=== PATIENT | male | born 1955 | race Caucasian/White ===

== ENCOUNTER 2018-05-03 18:48 | Inpatient (IN) | payer OTHER ==
[~2018-05-03] VITALS: Ht 165.1 cm; Wt 62.8 kg
[~2018-05-03 18:48] MED LIST: ALBU1AER9 INH; CITA40TA12 PO; DONE1TAB26 PO; METO-551 PO; MOME100A INH; SYNTHROID PO
[2018-05-03] MEDS ORDERED: DSY100 PO (19:28)
[2018-05-03] MEDS ORDERED: VNTHFA/IN INH (19:28)
[2018-05-03] MEDS ORDERED: DONE10TA12 PO (19:28)
[2018-05-03] MEDS ORDERED: BENZ100C7 PO (19:28)
[2018-05-03] MEDS ORDERED: LPR25 PO (19:28)
[2018-05-03 20:15] LABS: PTT PATIENT 26.6 SECONDS (21.0-31.0)
[2018-05-03 20:27] LABS: ALBUMIN 3.3 gm/dl (3.4-5.0); CREATININE 0.75 mg/dl (0.60-1.40); POTASSIUM 4.1 mmol/L (3.5-5.1); TOTAL PROTEIN 6.9 gm/dl (6.4-8.2)
--- NOTE | 2018-05-03 20:52 | DIAGNOSTIC IMAGING REPORT ---
CHEST 2 VIEWS ROUTINE CLINICAL HISTORY: Lung cancer with increasing shortness of breath. COMPARISON STUDY: Chest radiograph April 06, 2015. FINDINGS: Left hemithorax volume loss is noted. A 8.7 cm left midlung mass-like opacity is noted with suspected left upper lobe volume loss. There is possible left upper lobe collapse. Right lung is clear. There is no evidence for pulmonary edema cardiac size is normal. Rightward displacement of trachea may be due to lymphadenopathy or mass. IMPRESSION: 1. 8.7 cm mass-like left midlung opacity with possible associated left upper lobe collapse. The findings would be consistent with the provided history of lung cancer. 2. Rightward displacement of the distal trachea which may be due to lymphadenopathy or mass. 3. No evidence for pulmonary edema. 4. Hazy left mid and upper lung airspace opacity which favors atelectasis/upper lobe collapse. Pneumonia could appear similar. Electronically signed by: González Cartagena M.D. 05/03/2018 8:51 PM Dictated Date/Time: 05/03/2018 8:47 PM
[2018-05-03 20:54] LABS: HEMATOCRIT 36.5 % (42-52); MEAN CELL VOLUME 81.1 fL (80-100); MEAN CORPUSCULAR HEMOGLOBIN 31.1 pg (25-34); MEAN CORPUSCULAR HGB CONC 38.4 g/dl (32-36); PLATELET COUNT 175 K/uL (130-400); WHITE BLOOD COUNT 7.87 K/uL (4.8-10.8)
[2018-05-03 20:58] LABS: BASO % 0.1 %; BASO ABS # 0.01 K/uL (0-0.2); EOS % 1.5 %; EOS ABS # 0.12 K/uL (0-0.5); IG# 0.05 K/uL (0.00-0.02); LYMPH % 14.9 %; LYMPH ABS # 1.17 K/uL (1.2-3.4); MONO ABS # 0.63 K/uL (0.11-0.59); NEUT % 74.9 %; NEUT ABS # 5.89 K/uL (1.4-6.5)
[2018-05-03] MEDS ORDERED: HYDROCODONE/ACETAMIN 5/325MG TAB ONE (21:21)
[2018-05-03] MEDS ORDERED: NURSING VERBAL MED ORDER ONE (21:30)
[2018-05-03] MEDS ORDERED: HYDROCODONE/ACETAMIN 5/325MG TAB PO STA (21:48)
[2018-05-03] MEDS ORDERED: PIPERACILL/TAZOBAC CONSULT ACTIVE PRN (22:15)
[2018-05-03] MEDS ORDERED: LEVALBUTEROL/IPRATROPIUM NEB INH PRN (22:15)
[2018-05-03] MEDS ORDERED: NITROGLYCERIN 0.4 MG SL PER TAB CHARGE SL PRN (22:15)
[2018-05-03] MEDS ORDERED: POLYETHYLENE (MIRALAX) 17 GM PACK PO PRN (22:15)
[2018-05-03] MEDS ORDERED: ALUMINUM/MAGNESIUM/SIMETH (MAALOX MAX) 30 ML UDC PO PRN (22:15)
[2018-05-03] MEDS ORDERED: LEVALBUTEROL/IPRATROPIUM NEB INH SCH (22:15)
[2018-05-03] MEDS ORDERED: PIPERACILL/TAZOBAC IV 4.5 GM in DEXTROSE 5% 100ML 100 ML IV SCH (22:15)
[2018-05-03] MEDS ORDERED: ALBUTEROL HFA 8 GM INHALER INH PRN (22:15)
[2018-05-03] MEDS ORDERED: ATOR-54 PO (22:27)
[2018-05-03] MEDS ORDERED: PANT1TAB3 PO (22:27)
[2018-05-03] MEDS ORDERED: NMN10 PO (22:27)
[2018-05-03] MEDS ORDERED: DLN100 PO ×2 (22:28)
[2018-05-04] VITALS (12 sets, daily range): BP systolic 145–163; BP diastolic 88–95; PULSE 92–113; TEMP 36.5–36.8; O2SAT 94–98; Ht 165.1 cm; Wt 62.8 kg
--- NOTE | 2018-05-04 00:04 | EMERGENCY ROOM VISIT NOTE ---
History Report prepared by [place]: Norman Fonseca Under the Supervision of: Dr. Luis M Mckeon M.D. First contact with patient: 19:24 Chief Complaint: REFERRED BY DOCTOR Stated Complaint: REFERRED BY DR FOR RECENT LUNG CANCER DIAGNOSES History of Present Illness The patient is a 62 year old male who presents to the Emergency Room with complaints of worsening cough, left sided chest pain, and shortness of breath. He states that the chest pain is sharp and worsened with coughing, beginning about a month ago. The patient last coughed up blood a couple days ago. The patient reports that he had a CT scan 3 days ago that showed lung cancer with metastases. He denies any clots in his lungs. He reports that he was recommended by the on-call doctor to report to the ER. He states that he just found out a couple hours ago and that they do not yet have a plan for the cancer treatment. He also reports pain in the abdomen and groin but denies leg swelling or pain. He also notes that he experiences night sweats. He denies exposure to TB or any risk factors for TB including institutionalization. He reports that he used to be a heavy smoker, but has not smoked in 20 years. Source of History: patient Onset: about a month ago (chest pain) Position: chest Quality: other (coughing with blood, shortness of breath) Timing: worsening Associated Symptoms: + diaphoresis, + abdominal pain Review of Systems See HPI for pertinent positives & negatives. A total of 10 systems reviewed and were otherwise negative. Past Medical & Surgical Medical Problems: (1) Diabetes (2) Emphysema, unspecified (3) Heart disease (4) Lung mass (5) SOB (shortness of breath) Family History Cancer Heart disease Hypertension Seizures Social History Smoking Status: Never Smoker Alcohol Use: none Drug Use: none Marital Status: Housing Status: lives with family Occupation Status: unemployed Current/Historical Medications Scheduled Atorvastatin (Lipitor), 20 MG PO DAILY Donepezil Hydrochloride (Aricept), 10 MG PO HS Memantine (Namenda), 10 MG PO BID Metoprolol Tartrate (Lopressor), 25 MG PO HS Pantoprazole (Protonix), 40 MG PO DAILY Phenytoin Sodium (Dilantin), 200 MG PO QAM Phenytoin Sodium (Dilantin), 300 MG PO HS Trazodone HCl (Trazodone HCl), 100 MG PO HS Scheduled PRN Albuterol Hfa (Ventolin Hfa), 2 PUFFS INH Q4 PRN for Wheezing Benzonatate (Benzonatate), 200 MG PO TID PRN for Cough Allergies Coded Allergies: No Known Allergies (Unverified , 04/15/11) Physical Exam Vital Signs Date Time Temp Pulse Resp B/P (MAP) Pulse Ox O2 Delivery O2 Flow Rate FiO2 05/03/18 21:22 99 20 136/95 96 Room Air 05/03/18 18:59 96 18 175/97 97 Room Air Physical Exam Constitutional: Vital signs reviewed. Eyes: Pupils are equal round reactive to light. Conjunctiva are noninjected. ENT: Pharynx is clear without erythema or exudate. Mucous membranes are moist. Neck supple without meningeal signs. Respiratory: Clear to auscultation bilaterally. Breath sounds are equal bilaterally. Cardiovascular: Regular rate and rhythm. No rubs or gallops. GI: Soft, nondistended. Bowel sounds are present. Epigastric and right upper quadrant tenderness. No guarding. Musculoskeletal: No peripheral edema. No lower extremity tenderness. Integumentary: No cyanosis. Neurological: The patient is awake and alert. No focal deficits. Psychiatric: Normal affect. Medical Decision & Procedures ER Provider Diagnostic Interpretation: Radiology results as stated below per my review and the radiologist's interpretation: Patient: PATRICIA AVITIA Address1: [address] [place] [address] Rec: [id number] Address2: Acct ID: [id number] [facility] Zip: [place] [id number] Date: 1955 Sex: M Room/Bed: Ref Phy: Stanislaw Mcdonald D.O. SC: DANIELA Att Phy: Report #: [id number] Anne Phy: Stanislaw Mcdonald D.O. Test: CXR Admit Phy: Drug Counselor: KERRIE Interpreting Phy: González Cartagena MD Diagnosis: REFERRED BY FOR RECENT LUNG CANCER DIAGNOSES Ordering Phy: Luis M Mckeon MD Service Date: 05/03/18 Admit Date: 05/03/18 MNE: [id number] CONF: DICTATED BY: González Cartagena MD]] CC: Luis M Mckeon M.D. Sulman, Scott A., D.O. Endcc: [~ rep ct add3]] CHEST 2 VIEWS ROUTINE CLINICAL HISTORY: Lung cancer with increasing shortness of breath. COMPARISON STUDY: Chest radiograph April 06, 2015. FINDINGS: Left hemithorax volume loss is noted. A 8.7 cm left midlung mass-like opacity is noted with suspected left upper lobe volume loss. There is possible left upper lobe collapse. Right lung is clear. There is no evidence for pulmonary edema cardiac size is normal. Rightward displacement of trachea may be due to lymphadenopathy or mass. IMPRESSION: 1. 8.7 cm mass-like left midlung opacity with possible associated left upper lobe collapse. The findings would be consistent with the provided history of lung cancer. 2. Rightward displacement of the distal trachea which may be due to lymphadenopathy or mass. 3. No evidence for pulmonary edema. 4. Hazy left mid and upper lung airspace opacity which favors atelectasis/upper lobe collapse. Pneumonia could appear similar. Electronically signed by: González Cartagena M.D. 05/03/2018 8:51 PM Dictated Date/Time: 05/03/2018 8:47 PM Laboratory Results 05/03/18 19:51 Red Blood Count 4.50, Mean Corpuscular Volume 81.1, Mean Corpuscular Hemoglobin 31.1, Mean Corpuscular Hemoglobin Concent 38.4, Neutrophils (%) (Auto) 74.9, Lymphocytes (%) (Auto) 14.9, Monocytes (%) (Auto) 8.0, Eosinophils (%) (Auto) 1.5, Basophils (%) (Auto) 0.1, Neutrophils # (Auto) 5.89, Lymphocytes # (Auto) 1.17, Monocytes # (Auto) 0.63, Eosinophils # (Auto) 0.12, Basophils # (Auto) 0.01 05/03/18 19:51 Test 05/03/18 19:51 White Blood Count 7.87 K/uL (4.8-10.8) Red Blood Count 4.50 M/uL (4.7-6.1) Hemoglobin 14.0 g/dL (14.0-18.0) Hematocrit 36.5 % (42-52) Mean Corpuscular Volume 81.1 fL (80-100) Mean Corpuscular Hemoglobin 31.1 pg (25-34) Mean Corpuscular Hemoglobin Concent 38.4 g/dl (32-36) Platelet Count 175 K/uL (130-400) Neutrophils (%) (Auto) 74.9 % Lymphocytes (%) (Auto) 14.9 % Monocytes (%) (Auto) 8.0 % Eosinophils (%) (Auto) 1.5 % Basophils (%) (Auto) 0.1 % Neutrophils # (Auto) 5.89 K/uL (1.4-6.5) Lymphocytes # (Auto) 1.17 K/uL (1.2-3.4) Monocytes # (Auto) 0.63 K/uL (0.11-0.59) Eosinophils # (Auto) 0.12 K/uL (0-0.5) Basophils # (Auto) 0.01 K/uL (0-0.2) Immature Granulocyte % (Auto) 0.6 % Immature Granulocyte # (Auto) 0.05 K/uL (0.00-0.02) Red Blood Cell Morphology Unremarkable Prothrombin Time 10.7 SECONDS (9.0-12.0) Prothromb Time International Ratio 1.0 (0.9-1.1) Activated Partial Thromboplast Time 26.6 SECONDS (21.0-31.0) Partial Thromboplastin Ratio 1.0 Anion Gap 11.0 mmol/L (3-11) Est Creatinine Clear Calc Drug Dose 86.6 ml/min Estimated GFR () 112.4 Estimated GFR (Non- 96.9 BUN/Creatinine Ratio 22.8 (10-20) Calcium Level 9.0 mg/dl (8.5-10.1) Total Bilirubin 0.7 mg/dl (0.2-1) Direct Bilirubin 0.3 mg/dl (0-0.2) Aspartate Amino Transf (AST/SGOT) 118 U/L (15-37) Alanine Aminotransferase (ALT/SGPT) 53 U/L (12-78) Alkaline Phosphatase 449 U/L (45-117) Troponin I 0.020 ng/ml (0-0.045) Total Protein 6.9 gm/dl (6.4-8.2) Albumin 3.3 gm/dl (3.4-5.0) Lipase 46 U/L (73-393) Laboratory results as reviewed by me. Medications Administered Medications (Trade) Dose Ordered Sig/Guicho Route Start Time Stop Time Status Last Admin Dose Admin Acetaminophen/ Hydrocodone Bitart ([place] 5/325 Tab) 1 tab STK-MED ONCE .ROUTE 05/03/18 21:21 05/03/18 21:22 DC 05/03/18 21:26 1 TAB ECG Per My Interpretation Indication: SOB/dyspnea Rate (beats per minute): 92 Rhythm: normal sinus Findings: other (no PVCs, no ST elevation) ED Course 2028: The patient was evaluated in room B4B. A complete history and physical exam was performed. 2134: I updated the patient on his test results. He would like something something for pain. 2139: I spoke with Dr. Lyndon Almanza. He will reevaluate the patient for admission. 2147: Ordered [place] 5/325 1 tab PO Medical Decision This is a 62-year-old male who presents with hemoptysis, chest pain and shortness of breath. Differential diagnosis includes lung CA, pulmonary embolism, acute coronary syndrome, pneumonia, pleural effusion. I did perform a limited focused review of portions of the patient's old chart on the electronic medical record. He has no pertinent visits here but we did obtain records from the [employer] system. The patient received a CT of the chest with contrast on April 30 that showed: Left hilar malignant mass with encasement and obliteration of the left upper lobe bronchus, resulting in post obstructive atelectasis/consolidation. Extensive metastatic intrathoracic lymphadenopathy. Numerous hepatic metastases and upper abdominal metastatic lymphadenopathy. Heterogeneous appearance of the osseous structures, which could reflect underlying osseous metastases. I did evaluate the patient as noted above. IV access was established. The patient was placed on a continuous physical therapist technician. I did order and personally review the patient's 12-lead EKG and chest x-ray as described above. I did order and review the patient's blood work as noted in the electronic medical record. I did treat patient with Vicodin. I did discuss the test results with the patient and his family. He will be hospitalized for further care and evaluation. I did discuss case with the hospitalist and disability case manager. Medication Reconcilliation Current Medication List: was personally reviewed by me Blood Pressure Screening Patient's blood pressure: Elevated blood pressure Blood pressure disposition: Referred to PCP Consults Time Called: 2134 Consulting Physician: Dr. Lyndon Almanza Returned Call: [address] Lyndon Kramer Hospitalist. He will reevaluate the patient for admission. Impression Primary Impression: Metastatic lung cancer (metastasis from lung to other site) Additional Impression: Hemoptysis Scribe Attestation The scribe's documentation has been prepared under my direct and personally reviewed by me in its entirety. I confirm that the note above accurately reflects all work, treatment, procedures, and medical decision making performed by me. Departure Information Dispostion Being Evaluated By Hospitalist Referrals Stanislaw Mcdonald D.O. (PCP) Patient Instructions My [facility] Problem Qualifiers Primary Impression: Metastatic lung cancer (metastasis from lung to other site) Laterality: left Qualified Codes: C34.92 - Malignant neoplasm of unspecified part of left bronchus or lung
[2018-05-04] MEDS ORDERED: IPRATROPIUM BROMIDE NEB SOLN 0.02% 2.5 ML VIAL INH PRN (00:15)
[2018-05-04] MEDS ORDERED: PIPERACILL/TAZOBAC IV 3.375 GM in D5W 100 ML IV ONE (00:15)
[2018-05-04] MEDS ORDERED: LEVALBUTEROL 1.25MG/0.5ML NEB INH PRN (00:15)
[2018-05-04] MEDS: METHYLPREDNISOLONE IV 40 MG in SYRINGE 0 ML IV SCH ×2 (00:41→07:55)
[2018-05-04] MEDS: BENZONATATE 100MG CAP PO PRN ×2 (00:42→21:01)
--- NOTE | 2018-05-04 01:12 | HISTORY & PHYSICAL EXAMINATION ---
DATE OF ADMISSION: 05/03/2018 CHIEF COMPLAINT: Shortness of breath, cough, weight loss, lung mass. HISTORY OF PRESENT ILLNESS: This is a 62-year-old male with past medical history significant for seizure disorder, Alzheimer disease, vitamin D deficiency, hyperlipidemia, GERD, insomnia, was having lost about 10 pounds in about a month and having night sweats, having lot of cough during nights, which is causing him difficulty sleeping and his CAT scan of the CT done on outpatient on 04/30/18 h showed lung mass and also mets to the liver. The patient has history of smoking, smoked 2 packs a day from age [age] years. He quit smoking 20 years ago. Also, complaints of back pain and some pain in the chest when taking deep breaths. Also, getting short of breath with occasional yellow sputum.Has mild headaches. He always has blurred vision. No earache, no runny nose. Having some sore throat from coughing. No abdominal pain. Appetite is not great. Normal bowel and bladder movements. No blood in the stools. Currently, resting comfortably and hemodynamically stable. His also 6 weeks ago from ovarian cancer. ALLERGIES: No known drug allergies. PAST MEDICAL HISTORY: As mentioned above. PAST SURGICAL HISTORY: Appendectomy, repair of ruptured rotator cuff, right side. MEDICATIONS AT HOME: The patient is on Tessalon Perles 100 mg 2 capsules t.i.d. p.r.n., trazodone 100 mg p.o. at bedtime, Hycodan 5 mL every 6 hours as needed, Namenda 10 mg b.i.d., Lopressor 25 mg p.o. daily at bedtime, Aricept 10 mg p.o. at bedtime, phenytoin ER 200 mg in a.m. and 300 mg in p.m., Protonix 40 mg p.o. daily, Ventolin 2 puffs every 4 hours as needed, Lipitor 20 mg p.o. daily, calcium plus vitamin D 1 tablet twice daily. FAMILY HISTORY: Significant for mother had dementia. SOCIAL HISTORY: Former smoker, quit smoking, 2 packs a day for 20 years, quit 20 years ago. No alcohol use currently, but heavy alcohol in the past. No drug use. recently from ovarian cancer. REVIEW OF SYMPTOMS: As per HPI. Rest of review of symptoms negative. PHYSICAL EXAMINATION: GENERAL: The patient is of moderate build, not in distress. VITAL SIGNS: Temperature afebrile, pulse 99, respiratory rate 20, blood pressure 136/95, oxygen 96% on room air. HEENT: No pallor, no icterus. Pupils equal, round, and reactive to light. NECK: No JVD. No neck masses. No carotid bruit. CARDIOVASCULAR: S1, S2 heard, regular rate and rhythm, no murmur, no gallop. RESPIRATORY SYSTEM: Normal AP diameter. No accessory muscle use. Mild bibasilar crackles. No wheezing. ABDOMEN: Soft, bowel sounds present. Right upper quadrant tenderness present. No guarding, no rigidity. No distention. CENTRAL NERVOUS SYSTEM: Cranial nerves II through XII grossly nonfocal. EXTREMITIES: No edema, no erythema. LABS: WBC 7.8, hemoglobin 14, hematocrit 36.5, platelets 175. Sodium 136, potassium 4.1, chloride 103, bicarbonate 22, BUN 17, creatinine 0.7, serum glucose 73, calcium 9, total bilirubin 0.7, direct bilirubin 0.3, AST 118, ALT 153, alkaline phosphatase is 449. Troponin I is 0.02. Lipase 46. PT is 10.7, INR 1, APTT 26.6. Chest x-ray shows 8.7cm mass like left mid lung opacity, with possible associated left upper lobe collapse, the finding would be consistent with history of lung cancer. Rightward displacement of distal trachea, which may be due to lymphadenopathy or mass. No evidence of pulmonary edema. Hazy left mid and upper lung airspace opacity, which shows atelectasis, upper lobe collapse.Pneumonia could appear similar. Outpatient records, CAT scan done on 04/30 mentions left hilar malignant mass with encasement and obliteration of the left upper lobe bronchus resulting in postobstructive atelectasis, consolidation, extensive metastatic intrathoracic lymphadenopathy, numerous hepatic metastases and upper abdomen metastatic lymphadenopathy, heterogenous appearance of osseous structures, which could reflect underlying osseous metastasis. EKG: Normal sinus rhythm with a rate of 92. Nonspecific ST changes seen. QT at 469. ASSESSMENT AND PLAN: This is a 62-year-old male who presents with lung mass. 1. Lung mass. CAT scan done on 04/30/2018 at outpatient shows findings as above. Patient has history of smoking, states he smoked 2 packs a day for last 20 years, quit 20 years ago. possible postobstructive pneumonia. We will place him on IV steroids, IV Zosyn , nebs around the clock and p.r.n. Currently is hemodynamically stable. We will consult pulmonary in the a.m. for further recommendation for his left upper bronchus obstruction. Monitor on the tele floor. 2. History of seizure disorder. Continue his home medication of Dilantin. follow dilantin levels 3. History of Alzheimer dementia. Continue Aricept and Namenda. 4. Cough from above. Tessalon Perles and Robitussin AC syrup. We will monitor. 5. History of insomnia. Continue trazodone. 6. Gastroesophageal reflux disease. Continue Protonix. 7. History of hyperlipidemia, on statin. 8. DVT prophylaxis, we will place him on Lovenox. DISPOSITION: Admit to tele floor. To be determined. Level 1 full code as per my discussion with patient and daughter PEREZ
[2018-05-04] MEDS: IPRATROPIUM BROMIDE NEB SOLN 0.02% 2.5 ML VIAL INH SCH ×4 (01:19→19:31)
[2018-05-04] MEDS: LEVALBUTEROL 0.63MG/3 ML NEB INH SCH ×4 (01:19→19:32)
[2018-05-04] MEDS: GUAIFENESIN/CODEINE 200MG/20MG 10ML UDC PO PRN (01:40)
[2018-05-04] MEDS: ACETAMINOPHEN 325 MG TAB PO PRN (03:46)
[2018-05-04] MEDS ORDERED: OXYCODONE/ACETAMINOPHEN 5-325 TAB ONE (05:26)
[2018-05-04] MEDS: PIPERACILL/TAZOBAC IV 3.375 GM in D5W 100ML IV SCH ×3 (05:31→22:25)
[2018-05-04 05:49] LABS: BASO % 0.3 %; BASO ABS # 0.02 K/uL (0-0.2); EOS % 0.5 %; EOS ABS # 0.03 K/uL (0-0.5); HEMATOCRIT 34.8 % (42-52); HEMOGLOBIN 12.8 g/dL (14.0-18.0); IG# 0.06 K/uL (0.00-0.02); LYMPH % 10.7 %; LYMPH ABS # 0.68 K/uL (1.2-3.4); MEAN CELL VOLUME 82.3 fL (80-100); MEAN CORPUSCULAR HEMOGLOBIN 30.3 pg (25-34); MEAN CORPUSCULAR HGB CONC 36.8 g/dl (32-36); MEAN PLATELET VOLUME 8.9 fL (7.4-10.4); MONO % 5.2 %; MONO ABS # 0.33 K/uL (0.11-0.59); NEUT % 82.4 %; NEUT ABS # 5.21 K/uL (1.4-6.5); PLATELET COUNT 164 K/uL (130-400); RED CELL DISTRIBUTION WIDTH CV 15.6 % (11.5-14.5); RED CELL DISTRIBUTION WIDTH SD 44.8 fL (36.4-46.3); WHITE BLOOD COUNT 6.33 K/uL (4.8-10.8)
[2018-05-04 06:16] LABS: ALBUMIN 3.1 gm/dl (3.4-5.0); CALCIUM 8.8 mg/dl (8.5-10.1); CREATININE 0.87 mg/dl (0.60-1.40); POTASSIUM 4.1 mmol/L (3.5-5.1); TOTAL PROTEIN 6.4 gm/dl (6.4-8.2)
[2018-05-04] MEDS: PANTOprazole SOD 40 MG TAB PO SCH (07:55)
[2018-05-04] MEDS: ATORVASTATIN 20 MG TAB PO SCH (07:55)
[2018-05-04] MEDS: PHENYTOIN SODIUM ER 100 MG CAP PO SCH ×2 (07:55→21:00)
[2018-05-04] MEDS: MEMANTINE 10 MG TAB PO SCH ×2 (07:56→20:59)
--- NOTE | 2018-05-04 09:17 | Pulmonary Consultation ---
History General Date of Service: May 04, 2018. Stated Complaint: Lung Mass, Sob HPI The patient is a 62 year old male who presents to [facility] with complaints of Lung Mass, Sob. The patient's primary care provider is Stanislaw Mcdonald D.O.. 62-year-old male admitted for evaluation of lung mass. Patient has a past medical history significant for Alzheimer's/dementia, diabetes, hypertension, asthma, GERD, heart disease, seizure disorder and hyperlipidemia. Over the last 6 weeks the patient notes he has had a weakening voice, over the last 4 weeks he notes he has had progressive dyspnea with associated cough with increased mucus production but nonpurulent. He also notes in the last week he has started to have pleuritic type chest pain and associated hemoptysis. He did note an episode of hemoptysis which was scant this morning. Patient is also noted a decrease in appetite some weight loss as well as night sweats and chills. At this time he denies: Productive cough, classic cardiac chest pain, palpitations, lymphadenopathy, lower extremity swelling, nausea, odynophagia, dysphagia, signs of aspiration or focal neurologic weakness. Patient recently went to see his outside physician and secondary to his recent story underwent CT of the chest and abdomen on 04/30/2018 showing a large left hilar mass with rightward shift of the trachea, mediastinal adenopathy, postobstructive changes as well as possible metastatic disease to the liver as well as other osseous structures. After the patient's results were returned he was informed to present to the emergency room for further workup. CT scan performed 04/30/2018 Left hilar mass with obstruction of the left upper lobe bronchus and signs of postobstructive atelectasis Notable lymphadenopathy Numerous hepatic and upper abdominal signs of metastatic disease Possible osseous metastatic disease Previous imaging abdominal/pelvic CT 07/27/2016 and rib series 04/06/2015 as well as CXR 01/09/2014 Current workup EKG: Normal sinus rhythm with a rate of 92 no signs of acute ischemia WBC: [id number] PLT: [id number] H/H: --- INR: 1.0 PT: 10.7 aPTT: 26.6 AO: >409 AST: > 113 ALB: 3.1 CXR: Large left hemithoracic mass versus infiltrate with right shift of the lower trachea/compression, postobstructive change Current pulmonary treatment 1. Protonix 40 mg 2. Zosyn 3.375 GM every 8 hours 3. Atrovent/Xopenex nebulizer 4. Methylprednisolone 40 mg every 8 hours Past medical history: #1 hypertension #2 asthma #3 Right shoulder rotator cuff tear #4 left-sided 10th rib fracture #5 diabetes #6 emphysema #7 heart disease #8 Alzheimer's #9 seizure disorder #10 vitamin D deficiency #11 hyperlipidemia #12 GERD #13 insomnia Past surgical history: #1 right shoulder arthroplasty Social history: Tobacco: 2ppd from age [age] (20 years prior) Smokeless tobacco: No history of use Alcohol: No current use but history of abuse/heavy use in the past Marital status: , recently passed from ovarian cancer, 42 years Occupation: No current work Family history: Cancer Heart disease Hypertension Seizures Outpatient medications: #1 atorvastatin 20 mg #2 Aricept 10 mg #3 Namednda 10 mg #4 Lopressor 25 mg #5 Protonix 40 mg #6 Dilantin 200 mg every morning and 300 mg nightly #7 trazodone 100 mg nightly #8 Ventolin HFA as needed #9 benzonatate 200 mg as needed Allergies: No known drug allergies Family History Cancer Heart disease Hypertension Seizures Social History Hx Tobacco Use In Past Year?: No Smoking Status: Former Smoker Marital status: Housing status: lives with family Occupational Status: unemployed Allergies Coded Allergies: No Known Allergies (Unverified , 04/15/11) Current Medications Reported Home Medications Medications Dose Route/Sig Max Daily Dose Days Date Category Aricept (Donepezil Hydrochloride) 10 Mg Tab 10 Mg PO HS 05/03/18 Reported Lopressor (Metoprolol Tartrate) 25 Mg Tab 25 Mg PO HS 05/03/18 Reported Trazodone HCl 100 Mg Tab 100 Mg PO HS 05/03/18 Reported Benzonatate 100 Mg Cap 200 Mg PO TID PRN 05/03/18 Reported Ventolin Hfa (Albuterol) 200 Puffs/[id number] Mcg Aers 2 Puffs INH Q4 PRN 05/03/18 Reported Dilantin (Phenytoin Sodium) 100 Mg Cap 300 Mg PO HS 04/06/15 Reported Dilantin (Phenytoin Sodium) 100 Mg Cap 200 Mg PO QAM 04/06/15 Reported Protonix (Pantoprazole) 40 Mg Tab 40 Mg PO DAILY 04/06/15 Reported Lipitor (Atorvastatin) 20 Mg Tab 20 Mg PO DAILY 04/06/15 Reported Namenda (Memantine) 10 Mg Tab 10 Mg PO BID 04/06/15 Reported Physical Physical Exam Vital Signs: Date Time Temp Pulse Resp B/P (MAP) Pulse Ox O2 Delivery O2 Flow Rate FiO2 05/04/18 07:53 36.5 98 18 148/88 (108) 95 Room Air 05/04/18 07:02 99 18 96 Room Air 05/04/18 04:33 36.5 100 19 157/90 (112) 94 Room Air 05/04/18 01:20 92 18 94 Room Air 05/04/18 00:15 36.8 93 16 163/95 Room Air 05/03/18 23:22 36.5 100 20 133/89 95 05/03/18 22:53 96 17 150/100 95 Room Air 05/03/18 21:22 99 20 136/95 96 Room Air 05/03/18 18:59 96 18 175/97 97 Room Air General Appearance: thin Head: NORMOCEPHALIC, ATRAUMATIC Eyes: PERRLA, NO DISCHARGE, EOMI, SCLERAE NORMAL ENT: NORMAL EAR EXAM, NORMAL NASAL EXAM, NORMAL MOUTH EXAM, NORMAL THROAT EXAM Neck: NORMAL RANGE OF MOTION, NO TENDERNESS, TRACHEA MIDLINE, NO STRIDOR, SUPPLE, other (Mild fullness during visualization of the superior clavicular region of the left side but nothing to palpation noted) Respiratory: other (Clear to auscultation on the right with notable rhonchi in the left) Cardiovasular: REGULAR RATE/RHYTHM, NORMAL S1S2, NO M/G/R, NO MURMUR, NO GALLOP Abdomen: NON TENDER, NORMAL BOWEL SOUNDS, NO REBOUND, NO MASSES, NO GUARDING, NO ORGANOMEGALY Genitourinary - Male: EXTERNAL GENITALIA NORMAL Back: NORMAL INSPECTION, NO MIDLINE TENDERNESS, NO CVA TENDERNESS, NO PARAVERTEBRAL TTP, NORMAL RANGE OF MOTION Upper Extremities: NO EDEMA, NO DEFORMITY, NORMAL ROM Lower Extremities: NO EDEMA, NO DEFORMITY, NORMAL ROM Pulses: carotid (R) (2+), carotid (L) (2+), posterior tibial (R) (2+), posterior tibial (L) (2+) Neuro: ALERT, ORIENTED x 3, NORMAL MOTOR EXAM, NORMAL SENSATION, NORMAL CEREBELLAR EXAM, NORMAL SPEECH, NORMAL GAIT Reflexes: biceps (R) (2+), bicpes (L) (2+), patellar (R) (2+), patellar (L) (2+ ) Babinski Testing: right (downgoing), left (downgoing) Psychiatric: NORMAL AFFECT, NO SUICIDAL IDEATION, CONTRACTS FOR SAFETY Diagnostics Labs Results Past 24 Hours Test 05/03/18 19:51 05/04/18 05:30 05/04/18 08:34 Range/Units White Blood Count 7.87 6.33 4.8-10.8 K/uL Red Blood Count 4.50 4.23 4.7-6.1 M/uL Hemoglobin 14.0 12.8 14.0-18.0 g/dL Hematocrit 36.5 34.8 42-52 % Mean Corpuscular Volume 81.1 82.3 80-100 fL Mean Corpuscular Hemoglobin 31.1 30.3 25-34 pg Mean Corpuscular Hemoglobin Concent 38.4 36.8 32-36 g/dl Platelet Count 175 164 130-400 K/uL Neutrophils (%) (Auto) 74.9 82.4 % Lymphocytes (%) (Auto) 14.9 10.7 % Monocytes (%) (Auto) 8.0 5.2 % Eosinophils (%) (Auto) 1.5 0.5 % Basophils (%) (Auto) 0.1 0.3 % Neutrophils # (Auto) 5.89 5.21 1.4-6.5 K/uL Lymphocytes # (Auto) 1.17 0.68 1.2-3.4 K/uL Monocytes # (Auto) 0.63 0.33 0.11-0.59 K/uL Eosinophils # (Auto) 0.12 0.03 0-0.5 K/uL Basophils # (Auto) 0.01 0.02 0-0.2 K/uL Immature Granulocyte % (Auto) 0.6 0.9 % Immature Granulocyte # (Auto) 0.05 0.06 0.00-0.02 K/uL Red Blood Cell Morphology Unremarkable Prothrombin Time 10.7 9.0-12.0 SECONDS Prothromb Time International Ratio 1.0 0.9-1.1 Activated Partial Thromboplast Time 26.6 21.0-31.0 SECONDS Partial Thromboplastin Ratio 1.0 Sodium Level 136 136 136-145 mmol/L Potassium Level 4.1 4.1 3.5-5.1 mmol/L Chloride Level 103 103 98-107 mmol/L Carbon Dioxide Level 22 24 21-32 mmol/L Anion Gap 11.0 9.0 3-11 mmol/L Blood Urea Nitrogen 17 17 7-18 mg/dl Creatinine 0.75 0.87 0.60-1.40 mg/dl Est Creatinine Clear Calc Drug Dose 86.6 74.6 ml/min Estimated GFR () 112.4 105.7 Estimated GFR (Non- 96.9 91.2 BUN/Creatinine Ratio 22.8 19.8 10-20 Random Glucose 73 88 70-99 mg/dl Calcium Level 9.0 8.8 8.5-10.1 mg/dl Total Bilirubin 0.7 0.8 0.2-1 mg/dl Direct Bilirubin 0.3 0.4 0-0.2 mg/dl Aspartate Amino Transf (AST/SGOT) 118 113 15-37 U/L Alanine Aminotransferase (ALT/SGPT) 53 50 12-78 U/L Alkaline Phosphatase 449 409 45-117 U/L Troponin I 0.020 0-0.045 ng/ml Total Protein 6.9 6.4 6.4-8.2 gm/dl Albumin 3.3 3.1 3.4-5.0 gm/dl Lipase 46 73-393 U/L Mean Platelet Volume 8.9 7.4-10.4 fL RDW Standard Deviation 44.8 36.4-46.3 fL RDW Coefficient of Variation 15.6 11.5-14.5 % Magnesium Level 2.0 1.8-2.4 mg/dl Microbiology Results 05/03/18 Blood Culture - Preliminary, Resulted 05/03/18 Blood Culture, Received Pending Diagnostic Radiology Please refer to HPI EKG Please refer to HPI Impression Assessment and Plan 62-year-old male admitted for workup of left thoracic mass: 1. Left thoracic mass: Patient has a long history of smoking as well as increasing cough, some weight loss and hemoptysis over the last 6-8 weeks along with vocal cord changes. This is highly concerning for possible primary malignancy. I have spoken to the patient at length as well as reviewed his chest x-ray images and he is agreeable to moving forward with bronchoscopic evaluation. The type of bronchoscopy will be determined after I am able to review the patient's CAT scan imaging. We will also order an MRI of the head with and without contrast to help determine if any metastatic disease is noted. #2 pulmonary: I do not have any previous pulmonary function studies to determine the patient's underlying pulmonary status. At this time I do not believe he is having an active exacerbation of any obstructive ventilatory disease and will discontinue his prednisone at this time. 3. ID: We will obtain a pro-calcitonin level and review the patient's CT imaging. The patient is not acting as if he is having a postobstructive and/or primary pneumonia at this time but I do agree with continuing Zosyn until further evaluation can be performed. Thank you for this consultation.
[2018-05-04] MEDS ORDERED: GADAVIST IV PRN (12:15)
--- NOTE | 2018-05-04 12:22 | DIAGNOSTIC IMAGING REPORT ---
MRI OF THE BRAIN WITHOUT AND WITH IV CONTRAST CLINICAL HISTORY: Lung carcinoma. Evaluate for metastatic disease. Headache. Dizziness. Blurred vision. COMPARISON STUDY: No previous studies for comparison. TECHNIQUE: MRI of the brain was performed from the vertex to the skull base utilizing various T1 and T2 weighted sequences. Following the IV administration of 6 mL of Gadavist contrast, additional enhanced images were obtained. FINDINGS: Sagittal T1, axial diffusion, proton density and T2 weighted axial, coronal FLAIR, and pre and post axial T1-weighted images were acquired. These were supplemented with post gadolinium coronal T1 weighted images. No intra or extra-axial mass lesions are visualized. Axial diffusion-weighted images reveal no evidence of acute or subacute infarction. There is no evidence of ventricular dilatation. Proton density T2-weighted and FLAIR images reveal scattered foci of increased T2 signal within the white matter, likely on a small vessel basis. There are no abnormal flow voids. There is no evidence of pathologic enhancement. IMPRESSION: 1. No acute intracranial findings 2. No evidence of intracranial metastasis 3. No evidence of acute or subacute infarction. Electronically signed by: Charlie Ramirez M.D. 05/04/2018 12:21 PM Dictated Date/Time: 05/04/2018 12:20 PM
[2018-05-04] MEDS: OXYCODONE/ACETAMINOPHEN 5-325 TAB PO PRN ×2 (13:59→22:30)
--- NOTE | 2018-05-04 20:46 | Progress Note ---
Medicine Progress Note Date & Time of Visit: May 04, 2018 at 20:43. Subjective Seen sitting up in bed, using nebulizer alert oriented not in distress , Comfortable States he feels better compared to yesterday Denies active dyspnea Still has occasional cough, with sputum No hemoptysis Denies chest pain No other symptoms Objective Last 8 Hrs Date Time Temp Pulse Resp B/P (MAP) Pulse Ox O2 Delivery O2 Flow Rate FiO2 05/04/18 20:00 98 Room Air 05/04/18 19:32 92 18 98 Room Air 05/04/18 19:25 36.7 113 18 148/88 (108) 94 Room Air 05/04/18 15:54 36.6 102 20 154/91 (112) 94 05/04/18 14:14 96 18 97 Room Air Physical Exam: General-oriented 3, not in distress, speaking sentences no accessory muscle use Head- atraumatic Eyes- PERRL, EOMI, anicteric ENT- oropharynx clear Neck- supple, no JVD, no adenopathy, no thyromegaly; carotids +2/2, no bruits appreciated Lungs-mild crackles at the bases, no wheezing Heart- regular rhythm; no murmur, normal rate Abdomen- normal bowel sounds, soft, nontender Extremities- no pretibial edema, no calf tenderness; peripheral pulses intact Neuro- alert, oriented x 3; no gross focal deficits Skin- warm & dry Laboratory Results: Last 24 Hours Test 05/04/18 05:30 05/04/18 09:50 White Blood Count 6.33 K/uL Red Blood Count 4.23 M/uL Hemoglobin 12.8 g/dL Hematocrit 34.8 % Mean Corpuscular Volume 82.3 fL Mean Corpuscular Hemoglobin 30.3 pg Mean Corpuscular Hemoglobin Concent 36.8 g/dl Platelet Count 164 K/uL Mean Platelet Volume 8.9 fL Neutrophils (%) (Auto) 82.4 % Lymphocytes (%) (Auto) 10.7 % Monocytes (%) (Auto) 5.2 % Eosinophils (%) (Auto) 0.5 % Basophils (%) (Auto) 0.3 % Neutrophils # (Auto) 5.21 K/uL Lymphocytes # (Auto) 0.68 K/uL Monocytes # (Auto) 0.33 K/uL Eosinophils # (Auto) 0.03 K/uL Basophils # (Auto) 0.02 K/uL RDW Standard Deviation 44.8 fL RDW Coefficient of Variation 15.6 % Immature Granulocyte % (Auto) 0.9 % Immature Granulocyte # (Auto) 0.06 K/uL Sodium Level 136 mmol/L Potassium Level 4.1 mmol/L Chloride Level 103 mmol/L Carbon Dioxide Level 24 mmol/L Anion Gap 9.0 mmol/L Blood Urea Nitrogen 17 mg/dl Creatinine 0.87 mg/dl Est Creatinine Clear Calc Drug Dose 74.6 ml/min Estimated GFR () 105.7 Estimated GFR (Non- 91.2 BUN/Creatinine Ratio 19.8 Random Glucose 88 mg/dl Calcium Level 8.8 mg/dl Magnesium Level 2.0 mg/dl Total Bilirubin 0.8 mg/dl Direct Bilirubin 0.4 mg/dl Aspartate Amino Transf (AST/SGOT) 113 U/L Alanine Aminotransferase (ALT/SGPT) 50 U/L Alkaline Phosphatase 409 U/L Total Protein 6.4 gm/dl Albumin 3.1 gm/dl Hepatitis C Antibody Screen NEG Procalcitonin 0.52 ng/ml Phenytoin (Dilantin) Level 12.1 mcg/mL Assessment & Plan ASSESSMENT AND PLAN: This is a 62-year-old male who presents with lung mass. 1. Lung mass, rule out malignancy CAT scan done on 04/30/2018 at outpatient shows findings as above. Patient has history of smoking, states he smoked 2 packs a day for last 20 years, quit 20 years ago. -Supplemental discontinued Continue nebs, Zosyn -Pulmonary consulted Bronchoscopy planned 2. History of seizure disorder. Continue his home medication of Dilantin 3. History of Alzheimer dementia. Continue Aricept and Namenda. History of insomnia. Continue trazodone. Gastroesophageal reflux disease. Continue Protonix. History of hyperlipidemia, on statin. 8. DVT prophylaxis, Lovenox DISPOSITION: Admit to tele floor. To be determined. Level 1 full code as per my discussion with patient and daughter Current Inpatient Medications: Current Inpatient Medications Medications (Trade) Dose Ordered Sig/Guicho Route Start Time Stop Time Status Last Admin Dose Admin Acetaminophen (Tylenol Tab) 650 mg Q4H PRN PO 05/03/18 22:15 06/02/18 22:14 05/04/18 03:46 650 MG Al Hydrox/Mg Hydrox/Simethicone (Maalox Max Susp) 15 ml Q4H PRN PO 05/03/18 22:15 06/02/18 22:14 Ondansetron HCl (Zofran Inj) 4 mg Q6H PRN IV 05/03/18 22:15 06/02/18 22:14 Nitroglycerin (Nitrostat Tab) 0.4 mg UD PRN SL 05/03/18 22:15 06/02/18 22:14 Polyethylene (Miralax Powder Packet) 17 gm DAILY PRN PO 05/03/18 22:15 06/02/18 22:14 Albuterol (Ventolin Hfa Inhaler) 2 puffs Q4 PRN INH 05/03/18 22:15 06/02/18 22:14 Atorvastatin Calcium (Lipitor Tab) 20 mg DAILY PO 05/04/18 09:00 06/03/18 08:59 05/04/18 07:55 20 MG Benzonatate (Tessalon Perles Cap) 200 mg TID PRN PO 05/03/18 22:15 06/02/18 22:14 05/04/18 00:42 200 MG Donepezil HCl (Aricept Tab) 10 mg HS PO 05/04/18 21:00 06/03/18 20:59 Memantine (Namenda Tab) 10 mg BID PO 05/04/18 09:00 06/03/18 08:59 05/04/18 07:56 10 MG Metoprolol Tartrate (Lopressor Tab) 25 mg HS PO 05/04/18 21:00 06/03/18 20:59 Pantoprazole Sodium (Protonix Tab) 40 mg DAILY PO 05/04/18 09:00 06/03/18 08:59 05/04/18 07:55 40 MG Phenytoin Sodium (Dilantin Er Cap) 200 mg QAM PO 05/04/18 09:00 06/03/18 08:59 05/04/18 07:55 200 MG Phenytoin Sodium (Dilantin Er Cap) 300 mg HS PO 05/04/18 21:00 06/03/18 20:59 Trazodone HCl (Desyrel Tab) 100 mg HS PO 05/04/18 21:00 06/03/18 20:59 Miscellaneous Information (Consult) 1 ea UD PRN N/A 05/03/18 22:15 8/26/18 22:14 Codeine Phosphate/ Guaifenesin (Robitussin-AC Sugar Free Syrup) 10 ml Q6H PRN PO 05/03/18 22:15 06/02/18 22:14 05/04/18 01:40 10 ML Piperacillin Sod/ Tazobactam Sod 3.375 gm/Dextrose 115 ml @ 28.75 mls/ hr Q8 IV 05/04/18 06:00 05/11/18 05:59 05/04/18 13:08 28.75 MLS/HR Ipratropium [place] (Atrovent 0.02% 0.5MG/2.5ML Neb) 0.5 mg TIDR INH 05/04/18 00:30 06/03/18 00:29 05/04/18 19:31 0.5 MG Levalbuterol (Xopenex 0.63 Mg/ 3 Ml Neb) 0.63 mg TIDR INH 05/04/18 00:30 06/03/18 00:29 05/04/18 19:32 0.63 MG Ipratropium [place] (Atrovent 0.02% 0.5MG/2.5ML Neb) 0.5 mg Q4H PRN INH 05/04/18 00:15 06/03/18 00:14 Levalbuterol (Xopenex 1.25MG/ 0.5ML Neb) 1.25 mg Q4H PRN INH 05/04/18 00:15 06/03/18 00:14 Oxycodone/ Acetaminophen (Percocet 5-325mg Tab) 1 tab Q4H PRN PO 05/04/18 05:15 05/18/18 05:14 05/04/18 13:59 1 TAB Gadobutrol (Gadavist) 6 mmol UD PRN IV 05/04/18 12:15 05/08/18 12:14
[2018-05-04] MEDS: TRAZODONE HCL 100 MG TAB PO SCH (20:58)
[2018-05-04] MEDS: DONEPEZIL HCL 10 MG TAB PO SCH (20:58)
[2018-05-04] MEDS: METOPROLOL TARTRATE 25 MG TAB PO SCH (21:01)
[2018-05-05] VITALS (8 sets, daily range): BP systolic 111–136; BP diastolic 71–85; PULSE 88–105; TEMP 36.4–36.9; O2SAT 92–97
[2018-05-05] MEDS: ACETAMINOPHEN 325 MG TAB PO PRN ×2 (01:00→10:45)
[2018-05-05] MEDS: PIPERACILL/TAZOBAC IV 3.375 GM in D5W 100ML IV SCH ×3 (06:23→21:56)
[2018-05-05] MEDS: IPRATROPIUM BROMIDE NEB SOLN 0.02% 2.5 ML VIAL INH SCH ×4 (07:15→18:58)
[2018-05-05] MEDS: LEVALBUTEROL 0.63MG/3 ML NEB INH SCH ×4 (07:15→18:59)
[2018-05-05 07:32] LABS: BASO % 0.4 %; BASO ABS # 0.03 K/uL (0-0.2); EOS % 2.6 %; HEMATOCRIT 37.2 % (42-52); IG# 0.07 K/uL (0.00-0.02); LYMPH % 18.3 %; LYMPH ABS # 1.42 K/uL (1.2-3.4); MEAN CELL VOLUME 81.6 fL (80-100); MEAN CORPUSCULAR HEMOGLOBIN 30.7 pg (25-34); MEAN CORPUSCULAR HGB CONC 37.6 g/dl (32-36); MEAN PLATELET VOLUME 8.6 fL (7.4-10.4); MONO % 8.6 %; MONO ABS # 0.67 K/uL (0.11-0.59); NEUT % 69.2 %; NEUT ABS # 5.36 K/uL (1.4-6.5); NUCLEATED RED BLOOD CELL ABS 0.02 K/uL (0-0); PLATELET COUNT 174 K/uL (130-400); RED CELL DISTRIBUTION WIDTH CV 15.9 % (11.5-14.5); RED CELL DISTRIBUTION WIDTH SD 45.1 fL (36.4-46.3); WHITE BLOOD COUNT 7.75 K/uL (4.8-10.8)
[2018-05-05] MEDS: ATORVASTATIN 20 MG TAB PO SCH (07:50)
[2018-05-05] MEDS: PANTOprazole SOD 40 MG TAB PO SCH (07:50)
[2018-05-05] MEDS: BENZONATATE 100MG CAP PO PRN (07:50)
[2018-05-05] MEDS: OXYCODONE/ACETAMINOPHEN 5-325 TAB PO PRN (07:50)
[2018-05-05] MEDS: PHENYTOIN SODIUM ER 100 MG CAP PO SCH ×2 (07:51→21:52)
[2018-05-05] MEDS: MEMANTINE 10 MG TAB PO SCH ×2 (07:51→21:51)
[2018-05-05 08:01] LABS: CALCIUM 9.1 mg/dl (8.5-10.1); CREATININE 0.88 mg/dl (0.60-1.40); POTASSIUM 4.1 mmol/L (3.5-5.1)
[2018-05-05] MEDS: GUAIFENESIN/CODEINE 200MG/20MG 10ML UDC PO PRN (10:44)
[2018-05-05] MEDS ORDERED: MoRPHine SULFATE 4 MG/ML 1 ML CARP\\VIAL IV STA (10:56)
--- NOTE | 2018-05-05 10:58 | Progress Note ---
Medicine Progress Note Date & Time of Visit: May 05, 2018 at 10:58. Subjective Seen with family at the bedside, patient's daughter Not in distress but does report sharp chest pain on the left side Breathing is improving Still has dry cough No other symptoms Objective Last 8 Hrs Date Time Temp Pulse Resp B/P (MAP) Pulse Ox O2 Delivery O2 Flow Rate FiO2 05/05/18 08:00 Room Air 05/05/18 07:15 93 18 96 Room Air 05/05/18 04:35 36.9 88 15 117/74 (88) 96 Room Air Physical Exam: General-oriented 3, not in distress, speaking sentences no accessory muscle use Eyes- anicteric Neck- supple, no JVD Lungs-mild rales at the bases, no wheezing Heart- regular rhythm; no murmur, normal rate Abdomen- normal bowel sounds, soft, nontender Extremities- no pretibial edema, no calf tenderness Neuro- alert, oriented x 3; no gross focal deficits Skin- warm & dry Laboratory Results: Last 24 Hours Test 05/05/18 07:22 White Blood Count 7.75 K/uL Red Blood Count 4.56 M/uL Hemoglobin 14.0 g/dL Hematocrit 37.2 % Mean Corpuscular Volume 81.6 fL Mean Corpuscular Hemoglobin 30.7 pg Mean Corpuscular Hemoglobin Concent 37.6 g/dl Platelet Count 174 K/uL Mean Platelet Volume 8.6 fL Neutrophils (%) (Auto) 69.2 % Lymphocytes (%) (Auto) 18.3 % Monocytes (%) (Auto) 8.6 % Eosinophils (%) (Auto) 2.6 % Basophils (%) (Auto) 0.4 % Neutrophils # (Auto) 5.36 K/uL Lymphocytes # (Auto) 1.42 K/uL Monocytes # (Auto) 0.67 K/uL Eosinophils # (Auto) 0.20 K/uL Basophils # (Auto) 0.03 K/uL RDW Standard Deviation 45.1 fL RDW Coefficient of Variation 15.9 % Immature Granulocyte % (Auto) 0.9 % Immature Granulocyte # (Auto) 0.07 K/uL Nucleated RBC Absolute Count (auto) 0.02 K/uL Nucleated Red Blood Cells % 0.3 % Sodium Level 136 mmol/L Potassium Level 4.1 mmol/L Chloride Level 100 mmol/L Carbon Dioxide Level 24 mmol/L Anion Gap 12.0 mmol/L Blood Urea Nitrogen 16 mg/dl Creatinine 0.88 mg/dl Est Creatinine Clear Calc Drug Dose 73.8 ml/min Estimated GFR () 105.2 Estimated GFR (Non- 90.8 BUN/Creatinine Ratio 18.5 Random Glucose 85 mg/dl Calcium Level 9.1 mg/dl Magnesium Level 1.9 mg/dl Assessment & Plan ASSESSMENT AND PLAN: This is a 62-year-old male who presents with lung mass. 1. Lung mass, rule out malignancy CAT scan done on 04/30/2018 at outpatient shows findings as above. Patient has history of smoking, states he smoked 2 packs a day for last 20 years, quit 20 years ago. -Has increased left-sided chest pain today IV morphine ordered - Continue nebs, Zosyn -Pulmonary consulted Bronchoscopy planned for tomorrow Called [facility] requesting for images to be transmitted to our system for viewing 2. History of seizure disorder. Continue his home medication of Dilantin 3. History of Alzheimer dementia. Continue Aricept and Namenda. History of insomnia. Continue trazodone. Gastroesophageal reflux disease. Continue Protonix. History of hyperlipidemia, on statin. 8. DVT prophylaxis, Lovenox DISPOSITION: Admit to tele floor. To be determined. Level 1 full code as per my discussion with patient and daughter Current Inpatient Medications: Current Inpatient Medications Medications (Trade) Dose Ordered Sig/Guicho Route Start Time Stop Time Status Last Admin Dose Admin Acetaminophen (Tylenol Tab) 650 mg Q4H PRN PO 05/03/18 22:15 06/02/18 22:14 05/05/18 10:45 650 MG Al Hydrox/Mg Hydrox/Simethicone (Maalox Max Susp) 15 ml Q4H PRN PO 05/03/18 22:15 06/02/18 22:14 Ondansetron HCl (Zofran Inj) 4 mg Q6H PRN IV 05/03/18 22:15 06/02/18 22:14 Nitroglycerin (Nitrostat Tab) 0.4 mg UD PRN SL 05/03/18 22:15 06/02/18 22:14 Polyethylene (Miralax Powder Packet) 17 gm DAILY PRN PO 05/03/18 22:15 06/02/18 22:14 Albuterol (Ventolin Hfa Inhaler) 2 puffs Q4 PRN INH 05/03/18 22:15 06/02/18 22:14 Atorvastatin Calcium (Lipitor Tab) 20 mg DAILY PO 05/04/18 09:00 06/03/18 08:59 05/05/18 07:50 20 MG Benzonatate (Tessalon Perles Cap) 200 mg TID PRN PO 05/03/18 22:15 06/02/18 22:14 05/05/18 07:50 200 MG Donepezil HCl (Aricept Tab) 10 mg HS PO 05/04/18 21:00 06/03/18 20:59 05/04/18 20:58 10 MG Memantine (Namenda Tab) 10 mg BID PO 05/04/18 09:00 06/03/18 08:59 05/05/18 07:51 10 MG Metoprolol Tartrate (Lopressor Tab) 25 mg HS PO 05/04/18 21:00 06/03/18 20:59 05/04/18 21:01 25 MG Pantoprazole Sodium (Protonix Tab) 40 mg DAILY PO 05/04/18 09:00 06/03/18 08:59 05/05/18 07:50 40 MG Phenytoin Sodium (Dilantin Er Cap) 200 mg QAM PO 05/04/18 09:00 06/03/18 08:59 05/05/18 07:51 200 MG Phenytoin Sodium (Dilantin Er Cap) 300 mg HS PO 05/04/18 21:00 06/03/18 20:59 05/04/18 21:00 300 MG Trazodone HCl (Desyrel Tab) 100 mg HS PO 05/04/18 21:00 06/03/18 20:59 05/04/18 20:58 100 MG Miscellaneous Information (Consult) 1 ea UD PRN N/A 05/03/18 22:15 06/02/18 22:14 Codeine Phosphate/ Guaifenesin (Robitussin-AC Sugar Free Syrup) 10 ml Q6H PRN PO 05/03/18 22:15 06/02/18 22:14 05/05/18 10:44 10 ML Piperacillin Sod/ Tazobactam Sod 3.375 gm/Dextrose 115 ml @ 28.75 mls/ hr Q8 IV 05/04/18 06:00 8/4/18 05:59 05/05/18 06:23 28.75 MLS/HR Ipratropium [place] (Atrovent 0.02% 0.5MG/2.5ML Neb) 0.5 mg TIDR INH 05/04/18 00:30 06/03/18 00:29 05/05/18 07:15 0.5 MG Levalbuterol (Xopenex 0.63 Mg/ 3 Ml Neb) 0.63 mg TIDR INH 05/04/18 00:30 06/03/18 00:29 05/05/18 07:15 0.63 MG Ipratropium [place] (Atrovent 0.02% 0.5MG/2.5ML Neb) 0.5 mg Q4H PRN INH 05/04/18 00:15 06/03/18 00:14 Levalbuterol (Xopenex 1.25MG/ 0.5ML Neb) 1.25 mg Q4H PRN INH 05/04/18 00:15 06/03/18 00:14 Oxycodone/ Acetaminophen (Percocet 5-325mg Tab) 1 tab Q4H PRN PO 05/04/18 05:15 05/18/18 05:14 05/05/18 07:50 1 TAB Gadobutrol (Gadavist) 6 mmol UD PRN IV 05/04/18 12:15 05/08/18 12:14
[2018-05-05] MEDS: HEPARIN SOD 5000 UNIT/0.5 ML CARP SQ SCH ×2 (13:33→21:59)
--- NOTE | 2018-05-05 13:47 | Pulmonology Progress Note ---
Pulmonary Progress Note Date of Service May 05, 2018. Attending Dr. Lazo Subjective Patient is sitting up in bed and does not note any hemoptysis this a.m. and denies any respiratory insufficiency: Objective Patient is sitting up in bed have full conversation able to stand up moved throughout the room is showing no signs of respiratory insufficiency: Vital signs: Stable on room air Respiratory: Notable rhonchi of the left hemithorax Cardiac: S1-S2 distant heart sounds but regular rate and rhythm Extremities: No clubbing cyanosis or edema appreciated Abdomen: Soft positive bowel sounds no rebound Lab data Procalcitonin: >0.52 Current pulmonary treatment 1. Protonix 40 mg 2. Zosyn 3.375 GM every 8 hours 3. Atrovent/Xopenex nebulizer Assessment & Plan 62-year-old male admitted for workup of left thoracic mass: 1. Left Thoracic Mass: Patient is a social history as well as clinical history is concerning/placement high risk for primary pulmonary malignancy. This could also be underlying lymphoma or even abscess/pulmonary infarct parenchymal infection. I would like to move forward with the patient's flexible bronchoscopic/EBUS evaluation but at this time I am still waiting on his CT imaging. Patient has agreed and is signing consent form to move forward with bronchoscopic procedure/intervention. I will set the patient up for or time after reviewing his CT imaging. #2 Pulmonary: Patient doing well off steroids either oral or and or IV. No signs of acute COPD/obstructive ventilatory exacerbation. Will continue to monitor and keep on current pulmonary regimen. 3. ID: Patient does have an elevated procalcitonin level and high risk for postobstructive pneumonia. Do agree continuing broad-spectrum antibiotics/ ocean is appropriate at this time. Data Medications: Current Inpatient Medications Medications (Trade) Dose Ordered Sig/Guicho Route Start Time Stop Time Status Last Admin Dose Admin Acetaminophen (Tylenol Tab) 650 mg Q4H PRN PO 05/03/18 22:15 06/02/18 22:14 05/05/18 01:00 650 MG Al Hydrox/Mg Hydrox/Simethicone (Maalox Max Susp) 15 ml Q4H PRN PO 05/03/18 22:15 06/02/18 22:14 Ondansetron HCl (Zofran Inj) 4 mg Q6H PRN IV 05/03/18 22:15 06/02/18 22:14 Nitroglycerin (Nitrostat Tab) 0.4 mg UD PRN SL 05/03/18 22:15 06/02/18 22:14 Polyethylene (Miralax Powder Packet) 17 gm DAILY PRN PO 05/03/18 22:15 06/02/18 22:14 Albuterol (Ventolin Hfa Inhaler) 2 puffs Q4 PRN INH 05/03/18 22:15 06/02/18 22:14 Atorvastatin Calcium (Lipitor Tab) 20 mg DAILY PO 05/04/18 09:00 06/03/18 08:59 05/05/18 07:50 20 MG Benzonatate (Tessalon Perles Cap) 200 mg TID PRN PO 05/03/18 22:15 06/02/18 22:14 05/05/18 07:50 200 MG Donepezil HCl (Aricept Tab) 10 mg HS PO 05/04/18 21:00 06/03/18 20:59 05/04/18 20:58 10 MG Memantine (Namenda Tab) 10 mg BID PO 05/04/18 09:00 06/03/18 08:59 05/05/18 07:51 10 MG Metoprolol Tartrate (Lopressor Tab) 25 mg HS PO 05/04/18 21:00 06/03/18 20:59 05/04/18 21:01 25 MG Pantoprazole Sodium (Protonix Tab) 40 mg DAILY PO 05/04/18 09:00 06/03/18 08:59 05/05/18 07:50 40 MG Phenytoin Sodium (Dilantin Er Cap) 200 mg QAM PO 05/04/18 09:00 06/03/18 08:59 05/05/18 07:51 200 MG Phenytoin Sodium (Dilantin Er Cap) 300 mg HS PO 05/04/18 21:00 06/03/18 20:59 05/04/18 21:00 300 MG Trazodone HCl (Desyrel Tab) 100 mg HS PO 05/04/18 21:00 06/03/18 20:59 05/04/18 20:58 100 MG Miscellaneous Information (Consult) 1 ea UD PRN N/A 05/03/18 22:15 06/02/18 22:14 Codeine Phosphate/ Guaifenesin (Robitussin-AC Sugar Free Syrup) 10 ml Q6H PRN PO 05/03/18 22:15 06/02/18 22:14 05/05/18 10:44 10 ML Piperacillin Sod/ Tazobactam Sod 3.375 gm/Dextrose 115 ml @ 28.75 mls/ hr Q8 IV 05/04/18 06:00 05/11/18 05:59 05/05/18 06:23 28.75 MLS/HR Ipratropium [place] (Atrovent 0.02% 0.5MG/2.5ML Neb) 0.5 mg Q4H PRN INH 05/04/18 00:15 06/03/18 00:14 Levalbuterol (Xopenex 1.25MG/ 0.5ML Neb) 1.25 mg Q4H PRN INH 05/04/18 00:15 06/03/18 00:14 Oxycodone/ Acetaminophen (Percocet 5-325mg Tab) 1 tab Q4H PRN PO 05/04/18 05:15 05/18/18 05:14 05/05/18 07:50 1 TAB Gadobutrol (Gadavist) 6 mmol UD PRN IV 05/04/18 12:15 05/08/18 12:14 Morphine Sulfate (MoRPHine SULFATE INJ) 3 mg Q4H PRN IV 05/05/18 15:00 05/19/18 14:59 Ipratropium [place] (Atrovent 0.02% 0.5MG/2.5ML Neb) 0.5 mg Q6R INH 05/05/18 12:30 06/04/18 12:29 Levalbuterol (Xopenex 0.63 Mg/ 3 Ml Neb) 0.63 mg Q6R INH 05/05/18 12:30 06/04/18 12:29 Heparin Sodium (Porcine) (Heparin Sq 5000 Unit/0.5ml) 5,000 unit Q8 SQ 05/05/18 14:00 06/04/18 13:59 Vital Signs: Date Time Temp Pulse Resp B/P (MAP) Pulse Ox O2 Delivery O2 Flow Rate FiO2 05/05/18 12:09 36.8 93 16 111/71 (84) 94 Room Air 05/05/18 08:00 Room Air 7/29/18 07:15 93 18 96 Room Air 05/05/18 04:35 36.9 88 15 117/74 (88) 96 Room Air 05/04/18 23:08 36.6 107 18 145/92 (109) 96 Room Air 05/04/18 20:00 98 Room Air 05/04/18 19:32 92 18 98 Room Air 05/04/18 19:25 36.7 113 18 148/88 (108) 94 Room Air 05/04/18 15:54 36.6 102 20 154/91 (112) 94 05/04/18 14:14 96 18 97 Room Air Laboratory Results: Last 24 Hours Test 05/05/18 07:22 White Blood Count 7.75 K/uL Red Blood Count 4.56 M/uL Hemoglobin 14.0 g/dL Hematocrit 37.2 % Mean Corpuscular Volume 81.6 fL Mean Corpuscular Hemoglobin 30.7 pg Mean Corpuscular Hemoglobin Concent 37.6 g/dl Platelet Count 174 K/uL Mean Platelet Volume 8.6 fL Neutrophils (%) (Auto) 69.2 % Lymphocytes (%) (Auto) 18.3 % Monocytes (%) (Auto) 8.6 % Eosinophils (%) (Auto) 2.6 % Basophils (%) (Auto) 0.4 % Neutrophils # (Auto) 5.36 K/uL Lymphocytes # (Auto) 1.42 K/uL Monocytes # (Auto) 0.67 K/uL Eosinophils # (Auto) 0.20 K/uL Basophils # (Auto) 0.03 K/uL RDW Standard Deviation 45.1 fL RDW Coefficient of Variation 15.9 % Immature Granulocyte % (Auto) 0.9 % Immature Granulocyte # (Auto) 0.07 K/uL Nucleated RBC Absolute Count (auto) 0.02 K/uL Nucleated Red Blood Cells % 0.3 % Sodium Level 136 mmol/L Potassium Level 4.1 mmol/L Chloride Level 100 mmol/L Carbon Dioxide Level 24 mmol/L Anion Gap 12.0 mmol/L Blood Urea Nitrogen 16 mg/dl Creatinine 0.88 mg/dl Est Creatinine Clear Calc Drug Dose 73.8 ml/min Estimated GFR () 105.2 Estimated GFR (Non- 90.8 BUN/Creatinine Ratio 18.5 Random Glucose 85 mg/dl Calcium Level 9.1 mg/dl Magnesium Level 1.9 mg/dl
[2018-05-05] MEDS: MoRPHine SULFATE 4 MG/ML 1 ML CARP\\VIAL IV PRN (15:33)
[2018-05-05] MEDS: DONEPEZIL HCL 10 MG TAB PO SCH (21:53)
[2018-05-05] MEDS: METOPROLOL TARTRATE 25 MG TAB PO SCH (21:53)
[2018-05-05] MEDS: TRAZODONE HCL 100 MG TAB PO SCH (21:55)
[2018-05-06] VITALS (11 sets, daily range): BP systolic 106–147; BP diastolic 65–96; PULSE 72–110; TEMP 36.6–36.8; O2SAT 91–95
[2018-05-06] MEDS: ONDANSETRON INJ 2 MG/ML 2 ML VIAL IV PRN (00:44)
[2018-05-06] MEDS: LEVALBUTEROL 0.63MG/3 ML NEB INH SCH ×4 (01:36→19:44)
[2018-05-06] MEDS: IPRATROPIUM BROMIDE NEB SOLN 0.02% 2.5 ML VIAL INH SCH ×4 (01:37→19:44)
[2018-05-06 05:36] LABS: BASO % 0.3 %; BASO ABS # 0.02 K/uL (0-0.2); EOS % 1.9 %; EOS ABS # 0.14 K/uL (0-0.5); HEMATOCRIT 34.1 % (42-52); HEMOGLOBIN 12.8 g/dL (14.0-18.0); IG# 0.08 K/uL (0.00-0.02); LYMPH % 11.1 %; LYMPH ABS # 0.83 K/uL (1.2-3.4); MEAN CELL VOLUME 81.6 fL (80-100); MEAN CORPUSCULAR HEMOGLOBIN 30.6 pg (25-34); MEAN CORPUSCULAR HGB CONC 37.5 g/dl (32-36); MEAN PLATELET VOLUME 8.9 fL (7.4-10.4); MONO % 7.8 %; MONO ABS # 0.58 K/uL (0.11-0.59); NEUT % 77.8 %; NEUT ABS # 5.81 K/uL (1.4-6.5); PLATELET COUNT 145 K/uL (130-400); RED CELL DISTRIBUTION WIDTH CV 15.8 % (11.5-14.5); RED CELL DISTRIBUTION WIDTH SD 45.1 fL (36.4-46.3); WHITE BLOOD COUNT 7.46 K/uL (4.8-10.8)
[2018-05-06] MEDS: HEPARIN SOD 5000 UNIT/0.5 ML CARP SQ SCH ×2 (06:00→14:00)
[2018-05-06] MEDS: PIPERACILL/TAZOBAC IV 3.375 GM in D5W 100ML IV SCH ×3 (06:03→21:22)
[2018-05-06 06:11] LABS: CALCIUM 8.6 mg/dl (8.5-10.1); CREATININE 0.69 mg/dl (0.60-1.40); POTASSIUM 4.3 mmol/L (3.5-5.1)
[2018-05-06] MEDS: MoRPHine SULFATE 4 MG/ML 1 ML CARP\\VIAL IV PRN ×2 (07:41→15:50)
[2018-05-06] MEDS: PHENYTOIN SODIUM ER 100 MG CAP PO SCH ×2 (08:36→20:33)
[2018-05-06] MEDS: ATORVASTATIN 20 MG TAB PO SCH (08:36)
[2018-05-06] MEDS: MEMANTINE 10 MG TAB PO SCH ×2 (08:37→20:35)
[2018-05-06] MEDS: PANTOprazole SOD 40 MG TAB PO SCH (08:37)
[2018-05-06] MEDS ORDERED: ONDANSETRON INJ 2 MG/ML 2 ML VIAL ONE (08:42)
[2018-05-06] MEDS ORDERED: GLYCOPYRROLATE INJ 0.2 MG/ML VIAL ONE (08:42)
[2018-05-06] MEDS ORDERED: FENTANYL CITRATE INJ 50 MCG/1 ML 2 ML VIAL ONE ×2 (08:42→10:37)
[2018-05-06] MEDS ORDERED: PROPOFOL IV EMULSION 10 MG/ML 20 ML VIAL ONE (08:42)
[2018-05-06] MEDS ORDERED: NEOSTIGMINE METHYLSULFATE 5 MG/5 ML SYR ONE (08:42)
[2018-05-06] MEDS ORDERED: MIDAZOLAM HCL 1 MG/ML 2ML VIAL ONE (08:42)
[2018-05-06] MEDS ORDERED: DEXAMETHASONE SOD INJ 4 MG/ML VIAL ONE (08:42)
[2018-05-06] MEDS ORDERED: LIDOCAINE HCL 2% 2 ML VIAL (20MG/ML) ONE (08:42)
[2018-05-06] MEDS ORDERED: DEXTROSE 5% 1000ML 1,000 ML IV SCH (08:45)
[2018-05-06] MEDS ORDERED: NURSING VERBAL MED ORDER ONE ×2 (08:45→15:45)
--- NOTE | 2018-05-06 09:03 | History & Physical Bridge Note ---
H&P Re-Evaluation Bridge Note: I have examined the patient, reviewed the History & Physical and in the interval since the performance of the History & Physical I have noted the following changes of clinical significance: No changes noted
[2018-05-06] MEDS ORDERED: PHENYLEPHRINE 100MCG/ML 5ML SYR IV PRN (10:30)
[2018-05-06] MEDS ORDERED: EpHEDrine SULFATE INJ 50 MG/ML AMP IV PRN (10:30)
[2018-05-06] MEDS ORDERED: MEPERIDINE HCL 25 MG/ML CARP IV PRN (10:30)
[2018-05-06] MEDS ORDERED: LABETALOL HCL IV 5 MG/ML 20ML IV PRN (10:30)
[2018-05-06] MEDS ORDERED: NALOXONE HCL 0.4 MG/1 ML VIAL/CARP IV PRN (10:30)
[2018-05-06] MEDS ORDERED: ATROPINE SULFATE 0.1 MG/ML 5ML SYR IV PRN (10:30)
[2018-05-06] MEDS ORDERED: FENTANYL CITRATE INJ 50 MCG/1 ML 2 ML VIAL IV PRN (10:30)
[2018-05-06] MEDS ORDERED: HYDROmorphone INJ 2 MG/ML SYR/VIAL IV PRN (10:30)
[2018-05-06] MEDS ORDERED: FLUMAZENIL 0.1 MG/1 ML 10 ML VIAL IV PRN (10:30)
[2018-05-06] MEDS ORDERED: ONDANSETRON INJ 2 MG/ML 2 ML VIAL IV PRN (10:30)
[2018-05-06] MEDS ORDERED: METOPROLOL TARTRATE 1 MG/ML VIAL ONE (10:44)
--- NOTE | 2018-05-06 11:06 | Bronchoscopy Procedure Note ---
Bronchoscopy Procedure Note Procedure: Flexible-Bronchoscopy, EBUS/bronchoscopy, intrabronchial forcep biopsy, bronchial washing ,GETA Consent: Obtained through the patient placed into the chart Pre-Procedural Dx: Lung Mass Post-Procedural Dx: Lung Cancer/preliminary Analgesia: GETA Sedation: GETA Procedure: The Olympus video bronchoscope and EBUS scope were used for this procedure Initially the flexible bronchoscope was used for evaluation of the airways. The ET tube was notably 5cm above the level of the lashawn. Trachea: Visualized portion of the trachea was anatomically within normal limits Lashawn: Anatomically within normal limits Right bronchial tree: Right mainstem bronchus: Anatomically within normal limits Right upper lobe: Anatomically within normal limits Bronchus intermedius: Anatomically within normal limits Right middle lobe: Anatomically within normal limits Right lower lobe: Lateral segment basal pyramids small intrabronchial polyp/ nodule/ ENB: Hypo-vascular signs Left bronchial tree: Left mainstem bronchus: Within normal limits Left upper lobe: Obstructed by abnormal mucosa/tumor Lingula: Abnormal mucosa/tumor Left lower lobe: Partially obstructed by abnormal necrosis/tumor but able to enter appreciate the superior subsegment as well as medial subsegment and basal pyramids EBUS/MALLORY: Tbbx Hollie Stations: 7: # of passes 7 4R: # of passes 3 4L: # of passes 1 Bronchial washing: Right lower lobe Intrabronchial forcep: Right lower lobe, papilloma versus polyp, scar tissue Intrabronchial forcep: Left lower lobe, primary lung mass removal(at the end of the procedure part of the lung mass and broken off into the left lower lobe this was removed) EBL: 5cc Complications: none Follow-Up: PACU
--- NOTE | 2018-05-06 11:38 | Anesthesiology Progress Note ---
Anesthesia Post Op Note Date & Time May 06, 2018 at 11:37 Vital Signs Pain Intensity: 0 Vital Signs Past 12 Hours Date Time Temp Pulse Resp B/P (MAP) Pulse Ox O2 Delivery O2 Flow Rate FiO2 05/06/18 11:35 90 16 138/90 97 Nasal Cannula 2 05/06/18 11:25 88 16 121/87 97 Oxymask 10 05/06/18 11:16 97 16 124/86 94 Oxymask 10 05/06/18 11:07 36.5 83 16 108/68 97 Oxymask 10 05/06/18 08:00 Room Air 05/06/18 07:33 36.7 109 18 133/78 (96) 91 05/06/18 06:51 72 18 94 Room Air 05/06/18 04:53 36.8 104 19 115/75 (88) 91 Room Air 05/06/18 01:43 104 18 94 Room Air 05/06/18 00:01 Room Air Notes Mental Status: alert / awake / arousable, participated in evaluation Pt Amnestic to Procedure: Yes Nausea / Vomiting: adequately controlled Pain: adequately controlled Airway Patency, RR, SpO2: stable & adequate BP & HR: stable & adequate Hydration State: stable & adequate Anesthetic Complications: no major complications apparent
[2018-05-06] MEDS: OXYCODONE/ACETAMINOPHEN 5-325 TAB PO PRN (14:49)
--- NOTE | 2018-05-06 15:39 | Progress Note ---
Medicine Progress Note Date & Time of Visit: May 06, 2018 at 15:39. Subjective Seen resting in bed daughters at the bedside Status post bronchoscopy today States breathing is about the same Still has cough especially with deep inspiration, occasional hemoptysis Chest pain relieved by morphine Denies other symptoms Objective Last 8 Hrs Date Time Temp Pulse Resp B/P (MAP) Pulse Ox O2 Delivery O2 Flow Rate FiO2 05/06/18 14:13 95 18 94 Nasal Cannula 2.0 05/06/18 12:12 36.8 86 16 136/81 (99) 91 Nasal Cannula 2.0 05/06/18 11:45 36.4 83 16 137/86 97 Nasal Cannula 2 05/06/18 11:35 90 16 138/90 97 Nasal Cannula 2 05/06/18 11:25 88 16 121/87 97 Oxymask 10 05/06/18 11:16 97 16 124/86 94 Oxymask 10 05/06/18 11:07 36.5 83 16 108/68 97 Oxymask 10 05/06/18 08:00 Room Air Physical Exam: General-oriented 3, not in distress, speaking sentences no accessory muscle use Eyes- anicteric Neck-no JVD Lungs-mild rales at the bases, no wheezes Heart- regular rhythm; no murmur, normal rate Abdomen- normal bowel sounds, soft, nontender Extremities- no pretibial edema, no calf tenderness Neuro- alert, oriented x 3; no gross focal deficits Skin- warm & dry Laboratory Results: Last 24 Hours Test 05/06/18 05:24 05/06/18 09:15 White Blood Count 7.46 K/uL Red Blood Count 4.18 M/uL Hemoglobin 12.8 g/dL Hematocrit 34.1 % Mean Corpuscular Volume 81.6 fL Mean Corpuscular Hemoglobin 30.6 pg Mean Corpuscular Hemoglobin Concent 37.5 g/dl Platelet Count 145 K/uL Mean Platelet Volume 8.9 fL Neutrophils (%) (Auto) 77.8 % Lymphocytes (%) (Auto) 11.1 % Monocytes (%) (Auto) 7.8 % Eosinophils (%) (Auto) 1.9 % Basophils (%) (Auto) 0.3 % Neutrophils # (Auto) 5.81 K/uL Lymphocytes # (Auto) 0.83 K/uL Monocytes # (Auto) 0.58 K/uL Eosinophils # (Auto) 0.14 K/uL Basophils # (Auto) 0.02 K/uL RDW Standard Deviation 45.1 fL RDW Coefficient of Variation 15.8 % Immature Granulocyte % (Auto) 1.1 % Immature Granulocyte # (Auto) 0.08 K/uL Sodium Level 137 mmol/L Potassium Level 4.3 mmol/L Chloride Level 101 mmol/L Carbon Dioxide Level 24 mmol/L Anion Gap 12.0 mmol/L Blood Urea Nitrogen 14 mg/dl Creatinine 0.69 mg/dl Est Creatinine Clear Calc Drug Dose 94.1 ml/min Estimated GFR () 116.3 Estimated GFR (Non- 100.3 BUN/Creatinine Ratio 20.2 Random Glucose 72 mg/dl Calcium Level 8.6 mg/dl Magnesium Level 1.9 mg/dl Bedside Glucose 84 mg/dl Date/Time Source Procedure Growth Status 05/06/18 00:00 Bronchial Washings Left Lower Lobe Fungal Smear Pending Received 05/06/18 00:00 Bronchial Washings Left Lower Lobe Fungal Culture Pending Received 05/06/18 00:00 Bronchial Washings Left Lower Lobe Acid Fast Stain Pending Received 05/06/18 00:00 Bronchial Washings Left Lower Lobe Mycobacterial Culture Pending Received 05/06/18 00:00 Bronchial Washings Left Lower Lobe Gram Stain - Final Resulted 05/06/18 00:00 Bronchial Washings Left Lower Lobe Bronchoalveolar Lavage Culture Pending Resulted Assessment & Plan ASSESSMENT AND PLAN: This is a 62-year-old male who presents with lung mass. 1. Lung mass, rule out malignancy CAT scan done on 04/30/2018 at outpatient shows findings as above. Patient has history of smoking, states he smoked 2 packs a day for last 20 years, quit 20 years ago. -Status post bronchoscopy biopsy on May 06, 2018 Awaiting pathology report Continue morphine as needed for chest pain- - Continue nebs, Zosyn -Pulmonary consulted, appreciate the recommendations Oncology and radiation oncology consulted 2. History of seizure disorder. Continue his home medication of Dilantin 3. History of Alzheimer dementia. Continue Aricept and Namenda. History of insomnia. Continue trazodone. Gastroesophageal reflux disease. Continue Protonix. History of hyperlipidemia, on statin. 8. DVT prophylaxis Subcutaneous heparin on hold in light of bronchoscopy with biopsy earlier today DISPOSITION: Anticipate discharge to home after oncology evaluation and when medically stable Will need PT OT evaluation Current Inpatient Medications: Current Inpatient Medications Medications (Trade) Dose Ordered Sig/Guicho Route Start Time Stop Time Status Last Admin Dose Admin Acetaminophen (Tylenol Tab) 650 mg Q4H PRN PO 05/03/18 22:15 06/02/18 22:14 05/05/18 01:00 650 MG Al Hydrox/Mg Hydrox/Simethicone (Maalox Max Susp) 15 ml Q4H PRN PO 05/03/18 22:15 06/02/18 22:14 Ondansetron HCl (Zofran Inj) 4 mg Q6H PRN IV 05/03/18 22:15 06/02/18 22:14 05/06/18 00:44 4 MG Nitroglycerin (Nitrostat Tab) 0.4 mg UD PRN SL 05/03/18 22:15 06/02/18 22:14 Polyethylene (Miralax Powder Packet) 17 gm DAILY PRN PO 05/03/18 22:15 06/02/18 22:14 Albuterol (Ventolin Hfa Inhaler) 2 puffs Q4 PRN INH 05/03/18 22:15 06/02/18 22:14 Atorvastatin Calcium (Lipitor Tab) 20 mg DAILY PO 05/04/18 09:00 06/03/18 08:59 05/05/18 07:50 20 MG Benzonatate (Tessalon Perles Cap) 200 mg TID PRN PO 05/03/18 22:15 06/02/18 22:14 05/05/18 07:50 200 MG Donepezil HCl (Aricept Tab) 10 mg HS PO 05/04/18 21:00 06/03/18 20:59 05/05/18 21:53 10 MG Memantine (Namenda Tab) 10 mg BID PO 05/04/18 09:00 06/03/18 08:59 05/05/18 21:51 10 MG Metoprolol Tartrate (Lopressor Tab) 25 mg HS PO 05/04/18 21:00 06/03/18 20:59 05/05/18 21:53 25 MG Pantoprazole Sodium (Protonix Tab) 40 mg DAILY PO 05/04/18 09:00 06/03/18 08:59 05/05/18 07:50 40 MG Phenytoin Sodium (Dilantin Er Cap) 200 mg QAM PO 05/04/18 09:00 06/03/18 08:59 05/05/18 07:51 200 MG Phenytoin Sodium (Dilantin Er Cap) 300 mg HS PO 05/04/18 21:00 06/03/18 20:59 05/05/18 21:52 300 MG Trazodone HCl (Desyrel Tab) 100 mg HS PO 05/04/18 21:00 06/03/18 20:59 05/05/18 21:55 100 MG Miscellaneous Information (Consult) 1 ea UD PRN N/A 05/03/18 22:15 06/02/18 22:14 Codeine Phosphate/ Guaifenesin (Robitussin-AC Sugar Free Syrup) 10 ml Q6H PRN PO 05/03/18 22:15 06/02/18 22:14 05/05/18 10:44 10 ML Piperacillin Sod/ Tazobactam Sod 3.375 gm/Dextrose 115 ml @ 28.75 mls/ hr Q8 IV 05/04/18 06:00 05/11/18 05:59 05/06/18 14:00 28.75 MLS/HR Ipratropium [place] (Atrovent 0.02% 0.5MG/2.5ML Neb) 0.5 mg Q4H PRN INH 05/04/18 00:15 06/03/18 00:14 Levalbuterol (Xopenex 1.25MG/ 0.5ML Neb) 1.25 mg Q4H PRN INH 05/04/18 00:15 06/03/18 00:14 Oxycodone/ Acetaminophen (Percocet 5-325mg Tab) 1 tab Q4H PRN PO 05/04/18 05:15 05/18/18 05:14 05/06/18 14:49 1 TAB Gadobutrol (Gadavist) 6 mmol UD PRN IV 05/04/18 12:15 05/08/18 12:14 Morphine Sulfate (MoRPHine SULFATE INJ) 3 mg Q4H PRN IV 05/05/18 15:00 05/19/18 14:59 05/06/18 07:41 3 MG Ipratropium [place] (Atrovent 0.02% 0.5MG/2.5ML Neb) 0.5 mg Q6R INH 05/05/18 12:30 06/04/18 12:29 05/06/18 14:13 0.5 MG Levalbuterol (Xopenex 0.63 Mg/ 3 Ml Neb) 0.63 mg Q6R INH 05/05/18 12:30 06/04/18 12:29 05/06/18 14:13 0.63 MG Heparin Sodium (Porcine) (Heparin Sq 5000 Unit/0.5ml) 5,000 unit Q8 SQ 05/05/18 14:00 06/04/18 13:59 Dextrose 1,000 ml @ 30 mls/hr Q24H IV 05/06/18 08:45 06/05/18 08:44 05/06/18 08:45 30 MLS/HR Miscellaneous Information (Nursing Verbal Med Order) 1 ea ONE ONCE N/A 05/06/18 15:45 05/06/18 15:46 UNV
--- NOTE | 2018-05-06 15:58 | Radiation Oncology Consult ---
Radiation Oncology Consult Date / Reason May 06, 2018. Physicians Radiation Oncologist: Dr. Annamarie Young Diagnosis (1) Lung mass Stage: IV History of Present Illness I am seeing Mr. Zamora in consultation at the request of Dr. Coulter. ECOG PS: 2 - 3 Mr. Zamora is a 62-year-old gentleman who presents with a history of increasing exertional dyspnea, dyspnea at rest, scant hemoptysis and progressive hoarseness over the last several months. The patient did have a CT of the chest which revealed a lung mass and the patient was urged to come to the emergency department for admission and workup evaluation. 05/03/2018 --- CT of chest with contrast --- IMPRESSION: 1. Left hilar malignant mass with encasement and obliteration of the left upper lobe bronchus, resulting in postobstructive atelectasis/consolidation. 2. Extensive metastatic intrathoracic lymphadenopathy. 3. Numerous hepatic metastases and upper abdominal metastatic lymphadenopathy. 4. Heterogeneous appearance of the osseous structures, which could reflect underlying osseous metastases. 05/03/2018 --- chest x-ray --- IMPRESSION: 1. 8.7 cm mass-like left midlung opacity with possible associated left upper lobe collapse. The findings would be consistent with the provided history of lung cancer. 2. Rightward displacement of the distal trachea which may be due to lymphadenopathy or mass. 3. No evidence for pulmonary edema. 4. Hazy left mid and upper lung airspace opacity which favors atelectasis/upper lobe collapse. Pneumonia could appear similar. 05/04/2018 --- MRI of brain --- IMPRESSION: 1. No acute intracranial findings 2. No evidence of intracranial metastasis 3. No evidence of acute or subacute infarction. 05/06/2018 --- bronchoscopy by Dr. Anderson Lazo --- findings reveal left upper lobe, lingula and left lower lobe are obstructed by abnormal mucosa/tumor. Biopsies station 7, station 4R and station 4L were obtained and results are pending. We are now seeing the patient in consultation to discuss the role of radiation therapy. In general, the patient states he continues to have some scant hemoptysis. He also notes some exertional dyspnea and requires oxygen even at rest. He has had some weight loss which she cannot assess completely. His appetite is poor. He has fatigue. Past History Past Medical/Surgical History: CT, Alzheimer's, Diabetes Type 2, Asthma, Reflux , COPD, Hypertension Social History Smoking Status: Former Smoker Hx Tobacco Use In Past Year?: No Do You Dip or Chew Tobacco: No Hx Alcohol Use: No Hx Substance Use : No Allergies Coded Allergies: No Known Allergies (Unverified , 04/15/11) Home Medications Scheduled Atorvastatin (Lipitor), 20 MG PO DAILY Donepezil Hydrochloride (Aricept), 10 MG PO HS Memantine (Namenda), 10 MG PO BID Metoprolol Tartrate (Lopressor), 25 MG PO HS Pantoprazole (Protonix), 40 MG PO DAILY Phenytoin Sodium (Dilantin), 200 MG PO QAM Phenytoin Sodium (Dilantin), 300 MG PO HS Trazodone HCl (Trazodone HCl), 100 MG PO HS Scheduled PRN Albuterol Hfa (Ventolin Hfa), 2 PUFFS INH Q4 PRN for Wheezing Benzonatate (Benzonatate), 200 MG PO TID PRN for Cough Review of Systems Ear/Hearing: Ear Side: Right Hearing Ability: Hard of Hearing Hearing Aid: None Edema: Present?: No Location Body Site Modifier: Bilateral Physical Exam Height: 5 (Feet) 5.00 (Inches) 165.1 (Centimeters) 1.6510 (Meters) Weight: 138 (Pounds) 0.1 (Ounces) 62.600 (Kilograms) 70511.000 (Grams) Date Time Temp Pulse Resp B/P (MAP) Pulse Ox O2 Delivery O2 Flow Rate FiO2 05/06/18 14:13 95 18 94 Nasal Cannula 2.0 05/06/18 12:12 36.8 86 16 136/81 (99) 91 Nasal Cannula 2.0 05/06/18 11:45 36.4 83 16 137/86 97 Nasal Cannula 2 05/06/18 11:35 90 16 138/90 97 Nasal Cannula 2 05/06/18 11:25 88 16 121/87 97 Oxymask 10 05/06/18 11:16 97 16 124/86 94 Oxymask 10 05/06/18 11:07 36.5 83 16 108/68 97 Oxymask 10 05/06/18 08:00 Room Air 05/06/18 07:33 36.7 109 18 133/78 (96) 91 05/06/18 06:51 72 18 94 Room Air 05/06/18 04:53 36.8 104 19 115/75 (88) 91 Room Air 05/06/18 01:43 104 18 94 Room Air 05/06/18 00:01 Room Air 05/05/18 22:41 36.6 94 93 128/85 (99) 94 Room Air 05/05/18 20:00 Room Air 05/05/18 19:05 98 18 96 Room Air 05/05/18 19:02 36.4 105 16 131/83 (99) 95 Room Air 05/05/18 16:00 Room Air General Appearance: + mild distress Head: normocephalic, atraumatic Eyes: normal inspection, EOMI Neck: supple Respiratory/Chest: chest non-tender, + decreased breath sounds, + accessory muscle use Cardiovascular: regular rate, rhythm, no edema, no gallop, no JVD Abdomen/GI: normal bowel sounds, non tender, soft, no organomegaly Neurologic/Psych: broadcast systems engineer II-XII nml as tested, alert, oriented x 3 Pain Management Patient Reports Pain: No Side: Left Pain Location: Hip Patient Preferred Pain Scale: 0 - 10 Initial Pain Intensity: 8.0 Level of Consciousness: Spontaneously Alert Relief Measures: Medication - Oral Pain Medication Comment: Percocet po as per MD order. Pain Intervention: See MAR Pain Management Plan Defer pain management plan to primary inpatient team. Laboratory Laboratory Results: were reviewed Pathology Pathology Results: pending Imaging Imaging Studies: were reviewed, and pertinent findings noted in HPI Assessment & Recommendations Assessment: Mr. Zamora is a 62-year-old gentleman who presents with likely metastatic lung cancer. The patient was sent to the emergency department and admitted for a urgent workup and evaluation. Dr. Lazo did perform a bronchoscopy and obtain several biopsies of mediastinal lymph nodes which are pending. We have been asked to evaluate the patient for consideration of radiation therapy. Recommendation: Palliative external beam radiation therapy to the left hilar region to prevent further development of postobstructive pneumonia and dyspnea. Will await final pathology results. Patient should also hear about potential systemic therapy options from medical oncology after obtaining final pathology results. Plan: Schedule patient for tentative CT simulation tomorrow for treatment planning. Start palliative radiation therapy after confirmation of pathology results for lung cancer. Recommend medical oncology consultation after obtaining final pathology results. Rationale/Explanation of Treatment: We have explained the indications, alternatives, benefits, risks and side effects of radiation therapy to the lung. We have explained the most common side effects which include but are not limited to skin erythema, skin break down, pulmonary fibrosis, adhesion development, radiation pneumonitis, rib fracture, heart failure and heart disease, esophagitis, development of fistula, fatigue and development of secondary malignancy. We have explained the CT simulation process and treatment planning. We explained what to expect before, during and after treatment on a regular basis. The patient understands and would be willing to consent to treatment. The patient and family had multiple questions which were answered to their full satisfaction. Thank you for allowing us to participate in the care of this patient. This chart was completed in part utilizing [employer] Speech Voice Recognition software. Attempts were made to minimize the grammatical errors, random word insertions, pronoun errors and incomplete sentences. Any formal questions or concerns about the content, text or information contained within the body of this dictation should be directly addressed to the provider for clarification. Annamarie Young MD Department of Radiation Oncology [facility] Total Time In Consultation I spent 30 minutes examining and counseling the patient. I spent 15 minutes completing this note. SHEET HEATER Copy To Fab Coulter MD; Stanislaw Mcdonald, Lm.OBrenda; Luis M Lazo MD
[2018-05-06] MEDS: ACETAMINOPHEN 325 MG TAB PO PRN ×2 (19:15→23:57)
[2018-05-06] MEDS: TRAZODONE HCL 100 MG TAB PO SCH (20:33)
[2018-05-06] MEDS: METOPROLOL TARTRATE 25 MG TAB PO SCH (20:35)
[2018-05-06] MEDS: DONEPEZIL HCL 10 MG TAB PO SCH (20:36)
[2018-05-06] MEDS: BENZONATATE 100MG CAP PO PRN (23:57)
[2018-05-07] VITALS (9 sets, daily range): BP systolic 110–132; BP diastolic 68–81; PULSE 78–104; TEMP 36.4–36.9; O2SAT 91–98
[2018-05-07] MEDS: IPRATROPIUM BROMIDE NEB SOLN 0.02% 2.5 ML VIAL INH SCH ×4 (02:06→18:50)
[2018-05-07] MEDS: LEVALBUTEROL 0.63MG/3 ML NEB INH SCH ×4 (02:07→18:49)
[2018-05-07] MEDS: OXYCODONE/ACETAMINOPHEN 5-325 TAB PO PRN (02:24)
[2018-05-07] MEDS: MoRPHine SULFATE 4 MG/ML 1 ML CARP\\VIAL IV PRN ×3 (06:03→18:19)
[2018-05-07] MEDS: PIPERACILL/TAZOBAC IV 3.375 GM in D5W 100ML IV SCH ×3 (06:03→21:49)
[2018-05-07] MEDS: ONDANSETRON INJ 2 MG/ML 2 ML VIAL IV PRN (06:12)
[2018-05-07] MEDS: ATORVASTATIN 20 MG TAB PO SCH (08:22)
[2018-05-07] MEDS: MEMANTINE 10 MG TAB PO SCH ×2 (08:22→20:38)
[2018-05-07] MEDS: PHENYTOIN SODIUM ER 100 MG CAP PO SCH ×2 (08:22→20:38)
[2018-05-07] MEDS: PANTOprazole SOD 40 MG TAB PO SCH (08:22)
--- NOTE | 2018-05-07 09:05 | Pulmonology Progress Note ---
Pulmonary Progress Note Date of Service May 07, 2018. Attending Dr. Lazo Subjective Patient does not note active hemoptysis this morning but did have an episode after bronchoscopic intervention yesterday. Time denies fever, chills, productive cough. Continue to have some mild pleurisy but better controlled. Objective Patient doing well sitting up in bed showing no signs of accessory muscle use or respiratory insufficiency Vital signs: Stable on room air Respiratory: Notable rhonchi of the left hemithorax Cardiac: S1-S2 distant heart sounds but regular rate and rhythm Extremities: No clubbing cyanosis or edema appreciated Abdomen: Soft positive bowel sounds no rebound Current pulmonary treatment 1. Protonix 40 mg 2. Zosyn 3.375 GM every 8 hours 3. Atrovent/Xopenex nebulizer Assessment & Plan 62-year-old male admitted for workup of left thoracic mass: 1. Left Thoracic Mass: Patient underwent Ling/flexible bronchoscopic intervention on 02/04/2018. Preliminary diagnosis is carcinoma. Final stainings for origin, subtype as well as molecular markers are still pending. Dr. Young was involved from the radiation oncology department to help with the patient's hemoptysis. Patient is doing well status post bronchoscopy. 2. Pulmonary: Patient doing well off steroids either oral or and or IV. No signs of acute COPD/obstructive ventilatory exacerbation. Will continue to monitor and keep on current pulmonary regimen. 3. ID: Patient did have an elevated pro-calcitonin is responded well to IV antibiotics. Suggest switching him to Augmentin for a total of 7 day course of antibiotics. Signoff: At this time pulmonary will sign off. Patient will need clinic follow- up after his discharge. Data Medications: Current Inpatient Medications Medications (Trade) Dose Ordered Sig/Guicho Route Start Time Stop Time Status Last Admin Dose Admin Acetaminophen (Tylenol Tab) 650 mg Q4H PRN PO 05/03/18 22:15 06/02/18 22:14 05/06/18 23:57 650 MG Al Hydrox/Mg Hydrox/Simethicone (Maalox Max Susp) 15 ml Q4H PRN PO 05/03/18 22:15 06/02/18 22:14 Ondansetron HCl (Zofran Inj) 4 mg Q6H PRN IV 05/03/18 22:15 06/02/18 22:14 05/07/18 06:12 4 MG Nitroglycerin (Nitrostat Tab) 0.4 mg UD PRN SL 05/03/18 22:15 06/02/18 22:14 Polyethylene (Miralax Powder Packet) 17 gm DAILY PRN PO 05/03/18 22:15 06/02/18 22:14 Albuterol (Ventolin Hfa Inhaler) 2 puffs Q4 PRN INH 05/03/18 22:15 06/02/18 22:14 Atorvastatin Calcium (Lipitor Tab) 20 mg DAILY PO 05/04/18 09:00 06/03/18 08:59 05/07/18 08:22 20 MG Benzonatate (Tessalon Perles Cap) 200 mg TID PRN PO 05/03/18 22:15 06/02/18 22:14 05/06/18 23:57 200 MG Donepezil HCl (Aricept Tab) 10 mg HS PO 05/04/18 21:00 06/03/18 20:59 05/06/18 20:36 10 MG Memantine (Namenda Tab) 10 mg BID PO 05/04/18 09:00 06/03/18 08:59 05/07/18 08:22 10 MG Metoprolol Tartrate (Lopressor Tab) 25 mg HS PO 05/04/18 21:00 06/03/18 20:59 05/06/18 20:35 25 MG Pantoprazole Sodium (Protonix Tab) 40 mg DAILY PO 05/04/18 09:00 06/03/18 08:59 05/07/18 08:22 40 MG Phenytoin Sodium (Dilantin Er Cap) 200 mg QAM PO 05/04/18 09:00 06/03/18 08:59 05/07/18 08:22 200 MG Phenytoin Sodium (Dilantin Er Cap) 300 mg HS PO 05/04/18 21:00 06/03/18 20:59 05/06/18 20:33 300 MG Trazodone HCl (Desyrel Tab) 100 mg HS PO 05/04/18 21:00 06/03/18 20:59 05/05/18 21:55 100 MG Miscellaneous Information (Consult) 1 ea UD PRN N/A 05/03/18 22:15 06/02/18 22:14 Codeine Phosphate/ Guaifenesin (Robitussin-AC Sugar Free Syrup) 10 ml Q6H PRN PO 05/03/18 22:15 06/02/18 22:14 05/05/18 10:44 10 ML Piperacillin Sod/ Tazobactam Sod 3.375 gm/Dextrose 115 ml @ 28.75 mls/ hr Q8 IV 05/04/18 06:00 05/11/18 05:59 05/07/18 06:03 28.75 MLS/HR Ipratropium [place] (Atrovent 0.02% 0.5MG/2.5ML Neb) 0.5 mg Q4H PRN INH 05/04/18 00:15 06/03/18 00:14 Levalbuterol (Xopenex 1.25MG/ 0.5ML Neb) 1.25 mg Q4H PRN INH 05/04/18 00:15 06/03/18 00:14 Oxycodone/ Acetaminophen (Percocet 5-325mg Tab) 1 tab Q4H PRN PO 05/04/18 05:15 05/18/18 05:14 05/07/18 02:24 1 TAB Gadobutrol (Gadavist) 6 mmol UD PRN IV 05/04/18 12:15 05/08/18 12:14 Morphine Sulfate (MoRPHine SULFATE INJ) 3 mg Q4H PRN IV 05/05/18 15:00 05/19/18 14:59 05/07/18 06:03 3 MG Ipratropium [place] (Atrovent 0.02% 0.5MG/2.5ML Neb) 0.5 mg Q6R INH 05/05/18 12:30 06/04/18 12:29 05/07/18 07:09 0.5 MG Levalbuterol (Xopenex 0.63 Mg/ 3 Ml Neb) 0.63 mg Q6R INH 05/05/18 12:30 06/04/18 12:29 05/07/18 07:09 0.63 MG Vital Signs: Date Time Temp Pulse Resp B/P (MAP) Pulse Ox O2 Delivery O2 Flow Rate FiO2 05/07/18 07:35 36.5 103 18 118/68 (85) 91 Room Air 05/07/18 07:09 87 18 92 Room Air 05/07/18 04:00 36.9 81 18 121/79 (93) 95 Room Air 05/07/18 02:07 92 18 92 Room Air 05/07/18 00:00 Room Air 05/06/18 23:25 36.7 90 20 106/65 (79) 92 Room Air 05/06/18 20:50 93 116/76 (89) 05/06/18 20:00 95 Room Air 05/06/18 19:44 110 18 92 Room Air 05/06/18 16:00 Nasal Cannula 2.0 05/06/18 15:48 36.6 105 16 147/96 (113) 92 Nasal Cannula 2.0 05/06/18 14:13 95 18 94 Nasal Cannula 2.0 05/06/18 12:12 36.8 86 16 136/81 (99) 91 Nasal Cannula 2.0 05/06/18 11:45 36.4 83 16 137/86 97 Nasal Cannula 2 05/06/18 11:35 90 16 138/90 97 Nasal Cannula 2 05/06/18 11:25 88 16 121/87 97 Oxymask 10 05/06/18 11:16 97 16 124/86 94 Oxymask 10 05/06/18 11:07 36.5 83 16 108/68 97 Oxymask 10 Laboratory Results: Last 24 Hours Test 05/06/18 09:15 Bedside Glucose 84 mg/dl
--- NOTE | 2018-05-07 10:36 | Anesthesiology Progress Note ---
Anesthesia Post Op Note Date & Time May 07, 2018 at 10:35 Vital Signs Vital Signs Past 12 Hours Date Time Temp Pulse Resp B/P (MAP) Pulse Ox O2 Delivery O2 Flow Rate FiO2 05/07/18 08:00 Room Air 05/07/18 07:35 36.5 103 18 118/68 (85) 91 Room Air 05/07/18 07:09 87 18 92 Room Air 05/07/18 04:00 36.9 81 18 121/79 (93) 95 Room Air 05/07/18 02:07 92 18 92 Room Air 05/07/18 00:00 Room Air 05/06/18 23:25 36.7 90 20 106/65 (79) 92 Room Air Notes Mental Status: alert / awake / arousable, participated in evaluation Pt Amnestic to Procedure: Yes Nausea / Vomiting: adequately controlled Pain: adequately controlled Airway Patency, RR, SpO2: stable & adequate BP & HR: stable & adequate Hydration State: stable & adequate Anesthetic Complications: no major complications apparent
--- NOTE | 2018-05-07 14:05 | Medical Consult ---
Consultation Date of Consultation: May 07, 2018. Attending Physician: Fab Coulter MD Reason for Consultation: Left sided lung cancer with intra-abdominal LN and liver mets, newly diagnosed History of Present Illness Mr. Zamora is a 62 yo M new to the consulting medical oncology service for left sided lung primary with intra-abdominal LN and liver mets. This is newly diagnosed. Work up to date: 05/03/2018 CT of chest with contrast - Left hilar malignant mass with encasement and obliteration of the left upper lobe bronchus, resulting in postobstructive atelectasis/consolidation. Extensive metastatic intrathoracic lymphadenopathy. Numerous hepatic metastases and upper abdominal metastatic lymphadenopathy. Heterogeneous appearance of the osseous structures, which could reflect underlying osseous metastases. 05/04/2018 MRI of brain: No acute intracranial findings. No evidence of intracranial metastasis. No evidence of acute or subacute infarction. 05/06/2018 bronchoscopy by [facility]: findings reveal left upper lobe, lingula and left lower lobe are obstructed by abnormal mucosa/tumor. Additional history obtained from the patient. He is a nonspecific historian. He states he lost 20 lbs in 5 days with no major illness to explain loss. He weighed around 180s he states prior and now in 160s. He states he has chronic shoulder and back pain. He denies new areas of pain. He has cough and dyspnea with exertion, scanty hemoptysis. He reports decreased appetite and some nausea. No abdominal pain or bowel issues. He lives by himself, does light housework. He quit ETOH in as well TOB- drank a case and a half per day "for many yrs." he also smoked 2.5 PPD since 12 prior to quitting. He states his last seizure was "yrs ago." Past Medical/Surgical History Medical Problems: (1) Hemoptysis Status: Acute (2) Metastatic lung cancer (metastasis from lung to other site) Status: Acute Family History Cancer Heart disease Hypertension Seizures Social History Smoking Status: Former Smoker Drug Use: none Marital Status: Housing Status: lives with family Occupation Status: unemployed Allergies Coded Allergies: No Known Allergies (Unverified , 04/15/11) Current Inpatient Medications Current Inpatient Medications Medications (Trade) Dose Ordered Sig/Guicho Route Start Time Stop Time Status Last Admin Dose Admin Acetaminophen (Tylenol Tab) 650 mg Q4H PRN PO 05/03/18 22:15 06/02/18 22:14 05/06/18 23:57 650 MG Al Hydrox/Mg Hydrox/Simethicone (Maalox Max Susp) 15 ml Q4H PRN PO 05/03/18 22:15 06/02/18 22:14 Ondansetron HCl (Zofran Inj) 4 mg Q6H PRN IV 05/03/18 22:15 06/02/18 22:14 05/07/18 06:12 4 MG Nitroglycerin (Nitrostat Tab) 0.4 mg UD PRN SL 05/03/18 22:15 06/02/18 22:14 Polyethylene (Miralax Powder Packet) 17 gm DAILY PRN PO 05/03/18 22:15 06/02/18 22:14 Albuterol (Ventolin Hfa Inhaler) 2 puffs Q4 PRN INH 05/03/18 22:15 06/02/18 22:14 Atorvastatin Calcium (Lipitor Tab) 20 mg DAILY PO 05/04/18 09:00 06/03/18 08:59 05/07/18 08:22 20 MG Benzonatate (Tessalon Perles Cap) 200 mg TID PRN PO 05/03/18 22:15 06/02/18 22:14 05/06/18 23:57 200 MG Donepezil HCl (Aricept Tab) 10 mg HS PO 05/04/18 21:00 06/03/18 20:59 05/06/18 20:36 10 MG Memantine (Namenda Tab) 10 mg BID PO 05/04/18 09:00 06/03/18 08:59 05/07/18 08:22 10 MG Metoprolol Tartrate (Lopressor Tab) 25 mg HS PO 05/04/18 21:00 06/03/18 20:59 05/06/18 20:35 25 MG Pantoprazole Sodium (Protonix Tab) 40 mg DAILY PO 05/04/18 09:00 06/03/18 08:59 05/07/18 08:22 40 MG Phenytoin Sodium (Dilantin Er Cap) 200 mg QAM PO 05/04/18 09:00 06/03/18 08:59 05/07/18 08:22 200 MG Phenytoin Sodium (Dilantin Er Cap) 300 mg HS PO 05/04/18 21:00 06/03/18 20:59 05/06/18 20:33 300 MG Trazodone HCl (Desyrel Tab) 100 mg HS PO 05/04/18 21:00 06/03/18 20:59 05/05/18 21:55 100 MG Miscellaneous Information (Consult) 1 ea UD PRN N/A 05/03/18 22:15 06/02/18 22:14 Codeine Phosphate/ Guaifenesin (Robitussin-AC Sugar Free Syrup) 10 ml Q6H PRN PO 05/03/18 22:15 06/02/18 22:14 05/05/18 10:44 10 ML Piperacillin Sod/ Tazobactam Sod 3.375 gm/Dextrose 115 ml @ 28.75 mls/ hr Q8 IV 05/04/18 06:00 05/11/18 05:59 05/07/18 13:46 28.75 MLS/HR Ipratropium [place] (Atrovent 0.02% 0.5MG/2.5ML Neb) 0.5 mg Q4H PRN INH 05/04/18 00:15 06/03/18 00:14 Levalbuterol (Xopenex 1.25MG/ 0.5ML Neb) 1.25 mg Q4H PRN INH 05/04/18 00:15 06/03/18 00:14 Oxycodone/ Acetaminophen (Percocet 5-325mg Tab) 1 tab Q4H PRN PO 05/04/18 05:15 05/18/18 05:14 05/07/18 02:24 1 TAB Gadobutrol (Gadavist) 6 mmol UD PRN IV 05/04/18 12:15 05/08/18 12:14 Morphine Sulfate (MoRPHine SULFATE INJ) 3 mg Q4H PRN IV 05/05/18 15:00 05/19/18 14:59 05/07/18 06:03 3 MG Ipratropium [place] (Atrovent 0.02% 0.5MG/2.5ML Neb) 0.5 mg Q6R INH 05/05/18 12:30 06/04/18 12:29 05/07/18 07:09 0.5 MG Levalbuterol (Xopenex 0.63 Mg/ 3 Ml Neb) 0.63 mg Q6R INH 05/05/18 12:30 06/04/18 12:29 05/07/18 07:09 0.63 MG Review of Systems Constitutional: + weight loss, + fatigue, No fever Respiratory: + cough, + sputum, + wheezing, + shortness of breath, + hemoptysis Cardiovascular: No chest pain, No edema Abdomen: + nausea, No pain, No diarrhea, No constipation Musculoskeletal: + problem reported (see HPI) Physical Exam Date Time Temp Pulse Resp B/P (MAP) Pulse Ox O2 Delivery O2 Flow Rate FiO2 05/07/18 08:00 Room Air 05/07/18 07:35 36.5 103 18 118/68 (85) 91 Room Air 05/07/18 07:09 87 18 92 Room Air 05/07/18 04:00 36.9 81 18 121/79 (93) 95 Room Air 05/07/18 02:07 92 18 92 Room Air 05/07/18 00:00 Room Air 05/06/18 23:25 36.7 90 20 106/65 (79) 92 Room Air 05/06/18 20:50 93 116/76 (89) 05/06/18 20:00 95 Room Air 05/06/18 19:44 110 18 92 Room Air 05/06/18 16:00 Nasal Cannula 2.0 05/06/18 15:48 36.6 105 16 147/96 (113) 92 Nasal Cannula 2.0 05/06/18 14:13 95 18 94 Nasal Cannula 2.0 General Appearance: no apparent distress, + pertinent finding (appears older than stated age) ENT: hearing grossly normal Neck: supple, no adenopathy Respiratory/Chest: no respiratory distress, + decreased breath sounds Cardiovascular: regular rate, rhythm Abdomen/GI: non tender, soft, + hepatomegaly Extremities/Musculoskelatal: no calf tenderness Neurologic/Psych: alert, oriented x 3 Laboratory Results 05/05/18 07:22 Red Blood Count 4.56, Mean Corpuscular Volume 81.6, Mean Corpuscular Hemoglobin 30.7, Mean Corpuscular Hemoglobin Concent 37.6, Mean Platelet Volume 8.6, Neutrophils (%) (Auto) 69.2, Lymphocytes (%) (Auto) 18.3, Monocytes (%) (Auto) 8.6, Eosinophils (%) (Auto) 2.6, Basophils (%) (Auto) 0.4, Neutrophils # (Auto) 5.36, Lymphocytes # (Auto) 1.42, Monocytes # (Auto) 0.67, Eosinophils # (Auto) 0.20, Basophils # (Auto) 0.03 05/06/18 05:24 Red Blood Count 4.18, Mean Corpuscular Volume 81.6, Mean Corpuscular Hemoglobin 30.6, Mean Corpuscular Hemoglobin Concent 37.5, Mean Platelet Volume 8.9, Neutrophils (%) (Auto) 77.8, Lymphocytes (%) (Auto) 11.1, Monocytes (%) (Auto) 7.8, Eosinophils (%) (Auto) 1.9, Basophils (%) (Auto) 0.3, Neutrophils # (Auto) 5.81, Lymphocytes # (Auto) 0.83, Monocytes # (Auto) 0.58, Eosinophils # (Auto) 0.14, Basophils # (Auto) 0.02 05/05/18 07:22 05/06/18 05:24 Test 05/05/18 07:22 05/06/18 05:24 05/06/18 09:15 White Blood Count 7.75 K/uL (4.8-10.8) 7.46 K/uL (4.8-10.8) Red Blood Count 4.56 M/uL (4.7-6.1) 4.18 M/uL (4.7-6.1) Hemoglobin 14.0 g/dL (14.0-18.0) 12.8 g/dL (14.0-18.0) Hematocrit 37.2 % (42-52) 34.1 % (42-52) Mean Corpuscular Volume 81.6 fL (80-100) 81.6 fL (80-100) Mean Corpuscular Hemoglobin 30.7 pg (25-34) 30.6 pg (25-34) Mean Corpuscular Hemoglobin Concent 37.6 g/dl (32-36) 37.5 g/dl (32-36) Platelet Count 174 K/uL (130-400) 145 K/uL (130-400) Mean Platelet Volume 8.6 fL (7.4-10.4) 8.9 fL (7.4-10.4) Neutrophils (%) (Auto) 69.2 % 77.8 % Lymphocytes (%) (Auto) 18.3 % 11.1 % Monocytes (%) (Auto) 8.6 % 7.8 % Eosinophils (%) (Auto) 2.6 % 1.9 % Basophils (%) (Auto) 0.4 % 0.3 % Neutrophils # (Auto) 5.36 K/uL (1.4-6.5) 5.81 K/uL (1.4-6.5) Lymphocytes # (Auto) 1.42 K/uL (1.2-3.4) 0.83 K/uL (1.2-3.4) Monocytes # (Auto) 0.67 K/uL (0.11-0.59) 0.58 K/uL (0.11-0.59) Eosinophils # (Auto) 0.20 K/uL (0-0.5) 0.14 K/uL (0-0.5) Basophils # (Auto) 0.03 K/uL (0-0.2) 0.02 K/uL (0-0.2) RDW Standard Deviation 45.1 fL (36.4-46.3) 45.1 fL (36.4-46.3) RDW Coefficient of Variation 15.9 % (11.5-14.5) 15.8 % (11.5-14.5) Immature Granulocyte % (Auto) 0.9 % 1.1 % Immature Granulocyte # (Auto) 0.07 K/uL (0.00-0.02) 0.08 K/uL (0.00-0.02) Nucleated RBC Absolute Count (auto) 0.02 K/uL (0-0) Nucleated Red Blood Cells % 0.3 % Anion Gap 12.0 mmol/L (3-11) 12.0 mmol/L (3-11) Est Creatinine Clear Calc Drug Dose 73.8 ml/min 94.1 ml/min Estimated GFR () 105.2 116.3 Estimated GFR (Non- 90.8 100.3 BUN/Creatinine Ratio 18.5 (10-20) 20.2 (10-20) Calcium Level 9.1 mg/dl (8.5-10.1) 8.6 mg/dl (8.5-10.1) Magnesium Level 1.9 mg/dl (1.8-2.4) 1.9 mg/dl (1.8-2.4) Bedside Glucose 84 mg/dl (70-99) Assessment & Plan 1. stage IV lung primary favored with mets to intra-abd LNs and liver 2. Borderline performance status 3. Postobstruction issue with primary tumor 4. LFT elevation likely in metastatic disease * Patient has been advised by Rad Onc to proceed with palliative XRT to relieve obstruction issues in left lung * patient to start later this week when final pathology returns, CT sim today * Discussed with patient that Stage IV lung cancer is not curable but treatable but without final path cannot go into particulars with patient of treatment and he understood this * Dr. Young favoring palliative XRT prior to starting palliative systemic treatment * He did state he would like to receive palliative systemic treatment * Advise for the lung pathology when finalized as long as is NSCLC (which is favored at this point) to be sent for EGFR,ALK and PD L1 to help guide treatment decisions * Patient should have a bone scan to round out staging evaluation * Will continue to follow along Thanks for the consult. Dr. Young is attending medical oncologist- please see his addendum. I performed history and physical examination of the patient. ~I have discussed the patient's case, impression and plan with Leatha Milton PA-C. Her note reflects my findings and plan. In summary, he is a 62-year-old male, a case of suspected left lung cancer, has metastatic involving the intra-abdominal lymph nodes as well as liver, possible bone metastases, bronchoscopic evaluation done recently, final histopathology results pending. Seen by radiation oncology and planning for palliative radiation treatment to the obstructing left lung mass. I reviewed with the patient and son-in-law who was at bedside regarding diagnostic workup done in his case, will wait for the final histopath, will also wait for additional evaluation in the form of EGFR, ALK, PD L1 expression and then will decide about further management as an outpatient. Would like to get a bone scan for further evaluation especially when he complains of left hip pain and some left shoulder pain. If he has bony lesions, will consider for palliative radiation treatment to that area. Will follow-up as an outpatient. Juan F Young MD Hem/Onc
[2018-05-07] MEDS: DONEPEZIL HCL 10 MG TAB PO SCH (20:36)
[2018-05-07] MEDS: METOPROLOL TARTRATE 25 MG TAB PO SCH (20:37)
[2018-05-07] MEDS: TRAZODONE HCL 100 MG TAB PO SCH (20:40)
--- NOTE | 2018-05-07 21:57 | Progress Note ---
Medicine Progress Note Date & Time of Visit: May 07, 2018 at 21:56. Subjective Seen resting in bed, comfortable Chest pain about the same relieved with morphine, patient states pain may benefit from increasing pain medication No dyspnea No other symptoms Objective Last 8 Hrs Date Time Temp Pulse Resp B/P (MAP) Pulse Ox O2 Delivery O2 Flow Rate FiO2 05/07/18 20:12 36.4 101 18 132/81 (98) 91 Room Air 05/07/18 18:51 104 16 94 Room Air 05/07/18 16:14 36.4 97 18 110/71 (84) 94 Room Air 05/07/18 16:00 Room Air 05/07/18 14:09 78 18 95 Room Air Physical Exam: General-oriented 3, not in distress, speaking sentences no accessory muscle use Eyes- anicteric Neck-no JVD Lungs- mild rales left base, no wheezing Heart- regular rhythm; no murmur, normal rate Abdomen- normal bowel sounds, soft, nontender Extremities- no pretibial edema, no calf tenderness Neuro- alert, oriented x 3; no gross focal deficits Skin- warm & dry Assessment & Plan ASSESSMENT AND PLAN: This is a 62-year-old male who presents with lung mass. 1. 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 -Status post bronchoscopy biopsy on May 06, [address] Lazo left lung biopsy: small cell CA - Bone Scan Negative for skeletal metastases Brain MRI Negative for Intracranial metastases - given nebs, Zosyn PRN Morphine for left sided chest pain - Hem/Onc consulted: Dr. Juan F Young- follow up in 1-2 weeks as outpatient Radiation Oncologist Dr. Annamarie Young consulted- recommend palliative radiation, CT simulation performed, ff up in 1 week - discharge on: [place] 5/325 mg q6h PRN pain Ibuprofen 400mg TID PRN pain Nebs BID and PRN History of seizure disorder. Continue his home medication of Dilantin History of Alzheimer dementia. Continue Aricept and Namenda. History of insomnia. Continue trazodone. Gastroesophageal reflux disease. Continue Protonix. History of hyperlipidemia, on statin. DISPOSITION: d/c home ff up with PCP in 3-[address] Juna F Young- follow up in 1-[address] Annamarie Young consulted- follow up in 1 week Current Inpatient Medications: Current Inpatient Medications Medications (Trade) Dose Ordered Sig/Guicho Route Start Time Stop Time Status Last Admin Dose Admin Acetaminophen (Tylenol Tab) 650 mg Q4H PRN PO 05/03/18 22:15 06/02/18 22:14 05/06/18 23:57 650 MG Al Hydrox/Mg Hydrox/Simethicone (Maalox Max Susp) 15 ml Q4H PRN PO 05/03/18 22:15 06/02/18 22:14 Ondansetron HCl (Zofran Inj) 4 mg Q6H PRN IV 05/03/18 22:15 06/02/18 22:14 05/07/18 06:12 4 MG Nitroglycerin (Nitrostat Tab) 0.4 mg UD PRN SL 05/03/18 22:15 06/02/18 22:14 Polyethylene (Miralax Powder Packet) 17 gm DAILY PRN PO 05/03/18 22:15 06/02/18 22:14 Albuterol (Ventolin Hfa Inhaler) 2 puffs Q4 PRN INH 05/03/18 22:15 06/02/18 22:14 Atorvastatin Calcium (Lipitor Tab) 20 mg DAILY PO 05/04/18 09:00 06/03/18 08:59 05/07/18 08:22 20 MG Benzonatate (Tessalon Perles Cap) 200 mg TID PRN PO 05/03/18 22:15 06/02/18 22:14 05/06/18 23:57 200 MG Donepezil HCl (Aricept Tab) 10 mg HS PO 05/04/18 21:00 06/03/18 20:59 05/07/18 20:36 10 MG Memantine (Namenda Tab) 10 mg BID PO 05/04/18 09:00 06/03/18 08:59 05/07/18 20:38 10 MG Metoprolol Tartrate (Lopressor Tab) 25 mg HS PO 05/04/18 21:00 06/03/18 20:59 05/07/18 20:37 25 MG Pantoprazole Sodium (Protonix Tab) 40 mg DAILY PO 05/04/18 09:00 06/03/18 08:59 05/07/18 08:22 40 MG Phenytoin Sodium (Dilantin Er Cap) 200 mg QAM PO 05/04/18 09:00 06/03/18 08:59 05/07/18 08:22 200 MG Phenytoin Sodium (Dilantin Er Cap) 300 mg HS PO 05/04/18 21:00 06/03/18 20:59 05/07/18 20:38 300 MG Trazodone HCl (Desyrel Tab) 100 mg HS PO 05/04/18 21:00 06/03/18 20:59 05/05/18 21:55 100 MG Miscellaneous Information (Consult) 1 ea UD PRN N/A 05/03/18 22:15 06/02/18 22:14 Codeine Phosphate/ Guaifenesin (Robitussin-AC Sugar Free Syrup) 10 ml Q6H PRN PO 05/03/18 22:15 06/02/18 22:14 05/05/18 10:44 10 ML Piperacillin Sod/ Tazobactam Sod 3.375 gm/Dextrose 115 ml @ 28.75 mls/ hr Q8 IV 05/04/18 06:00 05/11/18 05:59 05/07/18 21:49 28.75 MLS/HR Ipratropium [place] (Atrovent 0.02% 0.5MG/2.5ML Neb) 0.5 mg Q4H PRN INH 05/04/18 00:15 06/03/18 00:14 Levalbuterol (Xopenex 1.25MG/ 0.5ML Neb) 1.25 mg Q4H PRN INH 05/04/18 00:15 06/03/18 00:14 Oxycodone/ Acetaminophen (Percocet 5-325mg Tab) 1 tab Q4H PRN PO 05/04/18 05:15 05/18/18 05:14 05/07/18 02:24 1 TAB Gadobutrol (Gadavist) 6 mmol UD PRN IV 05/04/18 12:15 05/08/18 12:14 Morphine Sulfate (MoRPHine SULFATE INJ) 3 mg Q4H PRN IV 05/05/18 15:00 05/19/18 14:59 05/07/18 18:19 3 MG Ipratropium [place] (Atrovent 0.02% 0.5MG/2.5ML Neb) 0.5 mg Q6R INH 05/05/18 12:30 06/04/18 12:29 05/07/18 18:50 0.5 MG Levalbuterol (Xopenex 0.63 Mg/ 3 Ml Neb) 0.63 mg Q6R INH 05/05/18 12:30 06/04/18 12:29 05/07/18 18:49 0.63 MG
[2018-05-08] VITALS (8 sets, daily range): BP systolic 126–146; BP diastolic 75–81; PULSE 79–104; TEMP 36.5–37; O2SAT 92–96
[2018-05-08] MEDS: IPRATROPIUM BROMIDE NEB SOLN 0.02% 2.5 ML VIAL INH SCH ×3 (01:44→14:27)
[2018-05-08] MEDS: LEVALBUTEROL 0.63MG/3 ML NEB INH SCH ×3 (01:45→14:27)
[2018-05-08] MEDS: MoRPHine SULFATE 4 MG/ML 1 ML CARP\\VIAL IV PRN ×3 (04:19→10:47)
[2018-05-08 06:18] LABS: HEMATOCRIT 34.9 % (42-52); HEMOGLOBIN 13.2 g/dL (14.0-18.0); MEAN CELL VOLUME 82.5 fL (80-100); MEAN CORPUSCULAR HEMOGLOBIN 31.2 pg (25-34); MEAN CORPUSCULAR HGB CONC 37.8 g/dl (32-36); MEAN PLATELET VOLUME 8.8 fL (7.4-10.4); NUCLEATED RED BLOOD CELL ABS 0.04 K/uL (0-0); PLATELET COUNT 154 K/uL (130-400); RED CELL DISTRIBUTION WIDTH SD 46.4 fL (36.4-46.3); WHITE BLOOD COUNT 6.99 K/uL (4.8-10.8)
[2018-05-08] MEDS: PHENYTOIN SODIUM ER 100 MG CAP PO SCH (07:59)
[2018-05-08] MEDS: ATORVASTATIN 20 MG TAB PO SCH (07:59)
[2018-05-08] MEDS: PANTOprazole SOD 40 MG TAB PO SCH (07:59)
[2018-05-08] MEDS: AMOXICILLIN/CLAVULANATE TAB 875 MG TAB PO SCH ×2 (07:59→16:34)
[2018-05-08] MEDS: MEMANTINE 10 MG TAB PO SCH (07:59)
[2018-05-08] MEDS: ONDANSETRON INJ 2 MG/ML 2 ML VIAL IV PRN (10:53)
--- NOTE | 2018-05-08 12:00 | DIAGNOSTIC IMAGING REPORT ---
BONE SCAN WHOLE BODY HISTORY: Lung carcinoma LUNG CANCER R/O BONE METS RADIOTRACER: 25.4 mCi Tc-99m MDP STUDY/IMAGES: Planar anterior and posterior whole body imaging was performed 3 hours following the intravenous administration of radiotracer. COMPARISON: None. FINDINGS: Bilateral renal activity is present. There is considerable activity in the region of the bladder. There is degenerative activity of the sacroiliac joints bilaterally. Activity characteristics of the axial and appendicular skeleton otherwise are unremarkable. Findings of mild degenerative change of the shoulders and to a lesser extent hips and knees. No abnormal soft tissue activity is present. IMPRESSION: 1. Degenerative activity of the sacroiliac joints and to lesser extent shoulders and knees. 2. No evidence for metastatic bone disease. The above report was generated using voice recognition software. It may contain grammatical, syntax or spelling errors. Electronically signed by: Marquez Alston M.D. 05/08/2018 11:59 AM Dictated Date/Time: 05/08/2018 11:58 AM
[2018-05-08] MEDS: OXYCODONE/ACETAMINOPHEN 5-325 TAB PO PRN (14:26)
[2018-05-08] MEDS: BENZONATATE 100MG CAP PO PRN (15:18)
[2018-05-08] MEDS ORDERED: AMOX1TAB43 PO (15:56)
[2018-05-08] MEDS ORDERED: HYDR-5688 PO (15:56)
[2018-05-08] MEDS ORDERED: XPNINS INH (15:56)
[2018-05-08] MEDS ORDERED: ATRINS INH (15:56)
[2018-05-08] MEDS ORDERED: IBUP-1277 PO (15:56)
--- NOTE | 2018-05-08 16:03 | Discharge Instructions ---
Discharge Instructions Date of Service May 08, 2018. Admission Reason for Admission: Lung Mass, Sob Discharge Discharge Diagnosis / Problem: Left Lung Small Cell Carcinoma Discharge Goals Goal(s): Diagnostic testing, Therapeutic intervention Activity Recommendations Activity Limitations: as noted below (no heavy exertion) Lifting Limitations: until after follow-up appointment Exercise/Sports Limitations: until after follow-up appointment Driving or Machine Use: NO driving . Instructions / Follow-Up Instructions / Follow-Up Please review your new medication list and follow instructions carefully. Call your primary care physician or return to ER immediately if with recurrence of symptoms, increasing chest pain, shortness of breath, cough, fever/chills. Follow up with Dr. Mcdonald on Sunday05/10/18 at 12:45 pm. Follow up with Radiation Oncologist in [facility] Dr. Annamarie Young in 1 week. Follow up with Oncologist in [facility] Dr. Juan F Young in 1-2 [phone] Current Hospital Diet Patient's current hospital diet: Regular Diet Discharge Diet Recommended Diet: Regular Diet Procedures Procedures Performed: flexible bronchoscopy; EBUS; fine needle aspiration; bronchial lavage; Right lower lobe forcep biopsy; Left lower lobe forcep biopsy Pending Studies Studies pending at discharge: no Medical Emergencies . Who to Call and When: Medical Emergencies: If at any time you feel your situation is an emergency, please call 911 immediately. . Non-Emergent Contact Non-Emergency issues call your: Primary Care Provider, Oncologist Call Non-Emergent contact if: you have a fever, your pain is not controlled, your pain is worsening, your pain is unusual for you, your pain is concerning you, you have any medication questions . . "Provider Documentation" section prepared by Fab Coulter. .
--- NOTE | 2018-05-08 16:08 | Discharge Summary ---
Discharge Summary Date of Service May 08, 2018. Discharge Summary Admission Date: May 03, 2018 at 22:21 Discharge Date: May 08, 2018 Discharge Disposition: Home with services Principal Diagnosis: Small Cell Carcinoma, Left Lung; with possible Liver Metastases; Possible Post Obstructive Pneumonia Secondary Diagnoses/Problems: Please refer to hospital course below. Procedures: CHEST 2 VIEWS ROUTINE CLINICAL HISTORY: Lung cancer with increasing shortness of breath. COMPARISON STUDY: Chest radiograph April 06, 2015. FINDINGS: Left hemithorax volume loss is noted. A 8.7 cm left midlung mass-like opacity is noted with suspected left upper lobe volume loss. There is possible left upper lobe collapse. Right lung is clear. There is no evidence for pulmonary edema cardiac size is normal. Rightward displacement of trachea may be due to lymphadenopathy or mass. IMPRESSION: 1. 8.7 cm mass-like left midlung opacity with possible associated left upper lobe collapse. The findings would be consistent with the provided history of lung cancer. 2. Rightward displacement of the distal trachea which may be due to lymphadenopathy or mass. 3. No evidence for pulmonary edema. 4. Hazy left mid and upper lung airspace opacity which favors atelectasis/upper lobe collapse. Pneumonia could appear similar. MRI OF THE BRAIN WITHOUT AND WITH IV CONTRAST CLINICAL HISTORY: Lung carcinoma. Evaluate for metastatic disease. Headache. Dizziness. Blurred vision. COMPARISON STUDY: No previous studies for comparison. TECHNIQUE: MRI of the brain was performed from the vertex to the skull base utilizing various T1 and T2 weighted sequences. Following the IV administration of 6 mL of Gadavist contrast, additional enhanced images were obtained. FINDINGS: Sagittal T1, axial diffusion, proton density and T2 weighted axial, coronal FLAIR, and pre and post axial T1-weighted images were acquired. These were supplemented with post gadolinium coronal T1 weighted images. No intra or extra-axial mass lesions are visualized. Axial diffusion-weighted images reveal no evidence of acute or subacute infarction. There is no evidence of ventricular dilatation. Proton density T2-weighted and FLAIR images reveal scattered foci of increased T2 signal within the white matter, likely on a small vessel basis. There are no abnormal flow voids. There is no evidence of pathologic enhancement. IMPRESSION: 1. No acute intracranial findings 2. No evidence of intracranial metastasis 3. No evidence of acute or subacute infarction. BONE SCAN WHOLE BODY HISTORY: Lung carcinoma LUNG CANCER R/O BONE METS RADIOTRACER: 25.4 mCi Tc-99m MDP STUDY/IMAGES: Planar anterior and posterior whole body imaging was performed 3 hours following the intravenous administration of radiotracer. COMPARISON: None. FINDINGS: Bilateral renal activity is present. There is considerable activity in the region of the bladder. There is degenerative activity of the sacroiliac joints bilaterally. Activity characteristics of the axial and appendicular skeleton otherwise are unremarkable. Findings of mild degenerative change of the shoulders and to a lesser extent hips and knees. No abnormal soft tissue activity is present. IMPRESSION: 1. Degenerative activity of the sacroiliac joints and to lesser extent shoulders and knees. 2. No evidence for metastatic bone disease. Consultations: Pulmonary Dr. Lazo, Hem/Onc Dr. Juan F Young, Rad/Onc Dr. Annamarie Young Pending Studies/Follow-Up: Please refer to hospital course below. Medication Reconciliation New Medications: Hydrocodone/Acetaminophen 5MG/325MG ([place] 5MG/325MG) Tab 1 TABLET PO Q6H PRN for severe pain, #20 TAB 0 Refills Ibuprofen (Advil) 200 Mg Tab 400 MG PO Q6H PRN for Pain, #30 TAB always take with food Amoxicillin & Pot Clavulanate (Amoxicillin/Clavulanate P) 1 Tab Tab 875 MG PO BIDM for 2 Days, #4 TAB 0 Refills Ipratropium [place] (Ipratropium [place]) 0.5 Mg/2.5 Ml Nebu 0.5 MG INH BID for 10 Days, #30 UNITS 2 Refills may also use every 4 hours as needed for shortness of breath/wheezing Levalbuterol (Levalbuterol HCl) 0.63 Mg/3 Ml Nebu 0.63 MG INH BID for 10 Days, #30 UNITS 2 Refills may also use every 4 hours as needed for shortness of breath/wheezing Continued Medications: Albuterol Hfa (Ventolin Hfa) 200 Puffs/16518 Mcg Aers 2 PUFFS INH Q4 PRN for Wheezing, #1 INHALER Atorvastatin (Lipitor) 20 Mg Tab 20 MG PO DAILY, TAB Benzonatate (Benzonatate) 100 Mg Cap 200 MG PO TID PRN for Cough Donepezil Hydrochloride (Aricept) 10 Mg Tab 10 MG PO HS, TAB Memantine (Namenda) 10 Mg Tab 10 MG PO BID, TAB Metoprolol Tartrate (Lopressor) 25 Mg Tab 25 MG PO HS Pantoprazole (Protonix) 40 Mg Tab 40 MG PO DAILY, #30 TAB Phenytoin Sodium (Dilantin) 100 Mg Cap 200 MG PO QAM Phenytoin Sodium (Dilantin) 100 Mg Cap 300 MG PO HS Trazodone HCl (Trazodone HCl) 100 Mg Tab 100 MG PO HS Admission Information HPI (per Admitting provider): CHIEF COMPLAINT: Shortness of breath, cough, weight loss, lung mass. HISTORY OF PRESENT ILLNESS: This is a 62-year-old male with past medical history significant for seizure disorder, Alzheimer disease, vitamin D deficiency, hyperlipidemia, GERD, insomnia, was having lost about 10 pounds in about a month and having night sweats, having lot of cough during nights, which is causing him difficulty sleeping and his CAT scan of the CT done on outpatient on 04/30/18 h showed lung mass and also mets to the liver. The patient has history of smoking, smoked 2 packs a day from age [age] years. He quit smoking 20 years ago. Also, complaints of back pain and some pain in the chest when taking deep breaths. Also, getting short of breath with occasional yellow sputum.Has mild headaches. He always has blurred vision. No earache, no runny nose. Having some sore throat from coughing. No abdominal pain. Appetite is not great. Normal bowel and bladder movements. No blood in the stools. Currently, resting comfortably and hemodynamically stable. His also 6 weeks ago from ovarian cancer. ALLERGIES: No known drug allergies. PAST MEDICAL HISTORY: As mentioned above. Physical Exam (per Admitting): GENERAL: The patient is of moderate build, not in distress. VITAL SIGNS: Temperature afebrile, pulse 99, respiratory rate 20, blood pressure 136/95, oxygen 96% on room air. HEENT: No pallor, no icterus. Pupils equal, round, and reactive to light. NECK: No JVD. No neck masses. No carotid bruit. CARDIOVASCULAR: S1, S2 heard, regular rate and rhythm, no murmur, no gallop. RESPIRATORY SYSTEM: Normal AP diameter. No accessory muscle use. Mild bibasilar crackles. No wheezing. ABDOMEN: Soft, bowel sounds present. Right upper quadrant tenderness present. No guarding, no rigidity. No distention. CENTRAL NERVOUS SYSTEM: Cranial nerves II through XII grossly nonfocal. EXTREMITIES: No edema, no erythema. Hospital Course ASSESSMENT AND PLAN: This is a 62-year-old male who presents with lung mass. 1. Small Cell Carcinoma, Left Lung; with possible Liver Metastases Possible Post Obstructive Pneumonia - lung mass and possible liver mets found on CAT scan done on 04/30/2018 as outpatient sent to the hospital for further evaluation Patient has history of smoking, states he smoked 2 packs a day for last 20 years, quit 20 years ago. - Status post bronchoscopy biopsy on May 06, [address] Lazo Left lung biopsy: small cell CA - Bone Scan Negative for skeletal metastases Brain MRI Negative for Intracranial metastases - given nebs, Zosyn PRN Morphine for left sided chest pain - Hem/Onc consulted: Dr. Juan F Young- follow up in 1-2 weeks as outpatient Radiation Oncologist Dr. Annamarie Young consulted- recommend palliative radiation, CT simulation performed, ff up in 1 week - improved clinically, left sided chest pain improving - discharge on: [place] 5/325 mg q6h PRN pain Ibuprofen 400mg TID PRN pain Nebs BID and PRN History of seizure disorder. Continue his home medication of Dilantin History of Alzheimer dementia. Continue Aricept and Namenda. History of insomnia. Continue trazodone. Gastroesophageal reflux disease. Continue Protonix. History of hyperlipidemia, on statin. DISPOSITION: d/c home ff up with PCP in 3-[address] Juan F Young- follow up in 1-[address] Annamarie Young consulted- follow up in 1 week Total time spent on discharge = 40 minutes This includes examination of the patient, discharge planning, medication reconciliation, and communication with other providers. Discharge Instructions Discharge Instructions Date of Service May 08, 2018. Admission Reason for Admission: Lung Mass, Sob Discharge Discharge Diagnosis / Problem: Left Lung Small Cell Carcinoma Discharge Goals Goal(s): Diagnostic testing, Therapeutic intervention Activity Recommendations Activity Limitations: as noted below (no heavy exertion) Lifting Limitations: until after follow-up appointment Exercise/Sports Limitations: until after follow-up appointment Driving or Machine Use: NO driving . Instructions / Follow-Up Instructions / Follow-Up Please review your new medication list and follow instructions carefully. Call your primary care physician or return to ER immediately if with recurrence of symptoms, increasing chest pain, shortness of breath, cough, fever/chills. Follow up with Dr. Mcdonald on Sunday05/10/18 at 1:00 pm. Follow up with Radiation Oncologist in [facility] Dr. Annamarie Young in 1 week. [phone] Follow up with Oncologist in [facility] Dr. Juan F Young in 1-2 [phone] Current Hospital Diet Patient's current hospital diet: Regular Diet Discharge Diet Recommended Diet: Regular Diet Procedures Procedures Performed: flexible bronchoscopy; EBUS; fine needle aspiration; bronchial lavage; Right lower lobe forcep biopsy; Left lower lobe forcep biopsy Pending Studies Studies pending at discharge: no Medical Emergencies . Who to Call and When: Medical Emergencies: If at any time you feel your situation is an emergency, please call 911 immediately. . Non-Emergent Contact Non-Emergency issues call your: Primary Care Provider, Oncologist Call Non-Emergent contact if: you have a fever, your pain is not controlled, your pain is worsening, your pain is unusual for you, your pain is concerning you, you have any medication questions . . "Provider Documentation" section prepared by Fab Coulter. .
--- NOTE | 2018-05-08 17:27 | Hematology/Oncology Prog Note ---
Hematology/Onc Progress Note Date of Service May 08, 2018. Subjective Patient was rounded on at bedside. He states his respiratory status feels improved, cough and dyspnea still present. He started on palliative XRT today. Majority of visit spent discussing pathology. Vital Signs Vital Signs Past 12 Hours Date Time Temp Pulse Resp B/P (MAP) Pulse Ox O2 Delivery O2 Flow Rate FiO2 05/08/18 16:19 36.7 104 18 95 Room Air 05/08/18 14:27 104 18 95 Room Air 05/08/18 08:00 95 Room Air 05/08/18 07:26 36.7 99 20 126/78 (94) 95 05/08/18 07:20 79 18 95 Room Air Physical Exam Constitutional: Level of Distress: NAD, chronically ill Lungs: Auscuitation: no wheezing, no rhonchi, decreased breath sounds Cardiovascular: Heart Auscultation: RRR Laboratory Last 24 Hours Test 05/08/18 05:45 White Blood Count 6.99 K/uL Red Blood Count 4.23 M/uL Hemoglobin 13.2 g/dL Hematocrit 34.9 % Mean Corpuscular Volume 82.5 fL Mean Corpuscular Hemoglobin 31.2 pg Mean Corpuscular Hemoglobin Concent 37.8 g/dl RDW Standard Deviation 46.4 fL RDW Coefficient of Variation 16.0 % Platelet Count 154 K/uL Mean Platelet Volume 8.8 fL Nucleated RBC Absolute Count (auto) 0.04 K/uL Nucleated Red Blood Cells % 0.5 % Assessment & Plan 1. stage IV lung primary favored with mets to intra-abd LNs and liver 2. Postobstruction issue with primary tumor 3. LFT elevation likely in metastatic disease * Discussed with patient that his pathology came back as SCLC * Discussed that treatment for Stage IV SCLC includes palliative systemic treatment with chemotherapy, either carboplatin/etoposide or cisplatin/ etoposide given over 3 days repeating q 21 days * Patient started on short course of palliative XRT to lung mass today * Dr. Young will follow up with the patient in outpatient setting for chemotherapy consent and starting of palliative treatment * Bone scan today is negative for metastatic disease
== END 2018-05-08 17:45 | disposition home or self-care (01) | DRG 166 ==
LOC: C.EDB 18:50 → C.MED 22:21 → ENRESERV 23:08
PROVIDERS: ADMIT Internal Medicine; ATTEND Internal Medicine
PROC: 0B9F8ZX Drainage of Right Lower Lung Lobe, Via Natural or Artificial Opening Endoscopic, Diagnostic (ICD-10-PCS; principal; 2018-05-06 10:30)
PROC: 0B9J8ZX Drainage of Left Lower Lung Lobe, Via Natural or Artificial Opening Endoscopic, Diagnostic (ICD-10-PCS; principal; 2018-05-06 10:30)
DX: C34.92 Malignant neoplasm of unspecified part of left bronchus or lung (principal); J18.9 Pneumonia, unspecified organism; C78.7 Secondary malignant neoplasm of liver and intrahepatic bile duct; C77.1 Secondary and unspecified malignant neoplasm of intrathoracic lymph nodes; R04.2 Hemoptysis; E11.9 Type 2 diabetes mellitus without complications; G30.9 Alzheimer's disease, unspecified; F02.80 Dementia in other diseases classified elsewhere, unspecified severity, without behavioral disturbance, psychotic disturbance, mood disturbance, and anxiety; G40.909 Epilepsy, unspecified, not intractable, without status epilepticus; E78.5 Hyperlipidemia, unspecified; K21.9 Gastro-esophageal reflux disease without esophagitis; E55.9 Vitamin D deficiency, unspecified; G47.00 Insomnia, unspecified; J45.909 Unspecified asthma, uncomplicated; Z51.81 Encounter for therapeutic drug level monitoring; Z79.899 Other long term (current) drug therapy; Z87.891 Personal history of nicotine dependence; Z82.49 Family history of ischemic heart disease and other diseases of the circulatory system; Z81.8 Family history of other mental and behavioral disorders

== ENCOUNTER 2018-05-18 08:21 | Emergency (ER) | payer OTHER ==
[~2018-05-18] VITALS: Ht 165.1 cm; Wt 58.0 kg
[~2018-05-18 08:21] MED LIST changes: -ALBU1AER9 INH; +ATOR-54 PO; +ATRINS INH; +BENZ100C7 PO; -CITA40TA12 PO; +DLN100 PO; +DONE10TA12 PO; -DONE1TAB26 PO; +HYDR-5688 PO; +IBUP-1277 PO; +LPR25 PO; -METO-551 PO; -MOME100A INH; +NMN10 PO; +PANT1TAB3 PO; -SYNTHROID PO; +VNTHFA/IN INH; +XPNINS INH
[2018-05-18 08:26] VITALS: BP 111/76; TEMP 36.7; Ht 165.1 cm; Wt 58.0 kg
[2018-05-18] MEDS ORDERED: HYDROmorphone INJ 1 MG/ML SYR ONE (08:42)
[2018-05-18] MEDS ORDERED: SODIUM CHLORIDE 0.9% 1000ML 1,000 ML IV STA (08:42)
[2018-05-18] MEDS ORDERED: PROMETHAZINE HCL INJ 12.5 MG in SODIUM CHLORIDE 0.9% 50ML 50 ML IV STA (08:42)
[2018-05-18] MEDS ORDERED: HYDROmorphone INJ 1 MG/ML SYR IV STA (08:42)
--- NOTE | 2018-05-18 08:56 | EMERGENCY ROOM VISIT NOTE ---
History Report prepared by [place]: [place] Under the Supervision of: Dr. Mehnaz Gallo M.D. First contact with patient: 08:33 Chief Complaint: PAIN (GENERALIZED) Stated Complaint: STAGE 4 LUNG CANCER,EXTREME PAIN History of Present Illness The patient is a 62 year old male who presents to the Emergency Room with complaints of worsening abdominal pain beginning a few weeks ago. He currently rates his symptoms his symptoms a 10/10 in severity. The patient's daughter states he is not able to take oral pills at home because of a tumor pressing against his esophagus. She reports he is currently on a 25 mcg fentanyl patch, but it is not helping. She states his pain increased this morning, and deep breathing increases his discomfort. The daughter notes he also has upper back pain. She states he has a lump on his left side that is painful to the touch. The daughter reports he has been vomiting. She notes he is not able to sleep or eat. The daughter states he has been drinking water because of a dry mouth. She reports hospice is coming to the house today. Review of EMR shows the patient was diagnosed with stage IV lung cancer on 05/03. Source of History: family (daughter) Onset: a few weeks ago Position: abdomen Symptom Intensity: 10/10 Timing: worsening Modifying Factors (Worsening): breathing (deep) Associated Symptoms: + vomiting, + back pain Note: Associated symptoms: decreased sleep and appetite Review of Systems See HPI for pertinent positives & negatives. A total of 10 systems reviewed and were otherwise negative. Past Medical & Surgical Medical Problems: (1) Diabetes (2) Emphysema, unspecified (3) Heart disease (4) Lung mass (5) SOB (shortness of breath) Family History Cancer Heart disease Hypertension Seizures Social History Smoking Status: Former Smoker Alcohol Use: none Drug Use: none Marital Status: Housing Status: lives with family Occupation Status: unemployed Current/Historical Medications Scheduled Atorvastatin (Lipitor), 20 MG PO DAILY Donepezil Hydrochloride (Aricept), 10 MG PO HS Fentanyl (Fentanyl), 25 MCG TOP CQ72HR Fentanyl (Fentanyl), 1 PATCH TD q3days Ipratropium [place] (Ipratropium [place]), 0.5 MG INH BID Levalbuterol (Levalbuterol HCl), 0.63 MG INH BID Memantine (Namenda), 10 MG PO BID Metoprolol Tartrate (Lopressor), 25 MG PO HS Ondasetron Odt (Zofran Odt), 4 MG SL Q6H Pantoprazole (Protonix), 40 MG PO DAILY Phenytoin Sodium (Dilantin), 200 MG PO QAM Phenytoin Sodium (Dilantin), 300 MG PO HS Scheduled PRN Albuterol Hfa (Ventolin Hfa), 2 PUFFS INH Q4 PRN for Wheezing Benzonatate (Benzonatate), 200 MG PO TID PRN for Cough Hydrocodone/Acetaminophen 5MG/325MG ([place] 5MG/325MG), 1 TABLET PO Q6H PRN for severe pain Oxycodone Hcl (Roxycodone Oral Soln), 5 ML PO Q4 PRN for Pain Allergies Coded Allergies: No Known Allergies (Unverified , 05/18/18) Physical Exam Vital Signs Date Time Temp Pulse Resp B/P (MAP) Pulse Ox O2 Delivery O2 Flow Rate FiO2 05/18/18 11:40 65 12 95 05/18/18 11:39 65 12 95 Room Air 05/18/18 08:26 36.7 115 22 111/76 95 Room Air Physical Exam Vital signs reviewed. General: Chronically-ill appearing 62 year old male in significant pain. Minimally verbal. Grunts with any position change. Pain with deep inspiration. HEENT: No scleral icterus, PERRLA, neck supple. Atraumatic. Cardiovascular: Regular rate and rhythm, no extra sounds. Pulmonary: Clear to auscultation bilaterally, normal work of breathing. Abdomen: Soft, nontender, nondistended, positive bowel sounds. Musculoskeletal: Atraumatic, no peripheral edema. Neurologic: Patient awake alert and minimally verbal. Skin: Warm, dry, no rash Medical Decision & Procedures Medications Administered Medications (Trade) Dose Ordered Sig/[place] Route Start Time Stop Time Status Last Admin Dose Admin Hydromorphone HCl (Dilaudid Inj) 1 mg STK-MED ONCE .ROUTE 05/18/18 08:42 05/18/18 08:43 DC 05/18/18 08:48 1 MG Promethazine HCl 12.5 mg/Sodium Chloride 50.5 ml @ 204 mls/hr NOW STAT IV 05/18/18 08:42 05/18/18 08:56 DC 05/18/18 09:09 204 MLS/HR Sodium Chloride 1,000 ml @ 150 mls/hr Q6H40M STAT IV 05/18/18 08:42 05/18/18 13:05 DC 05/18/18 08:42 150 MLS/HR Fentanyl (Duragesic Patch) 50 mcg NOW STAT TD 05/18/18 11:09 05/18/18 11:11 DC 05/18/18 11:32 50 MCG Miscellaneous (Fentanyl Patch Remove & Waste) 1 ea Q3D N/A 05/18/18 11:15 05/18/18 13:05 DC 05/18/18 11:15 1 EA ED Course 0841: Past medical records reviewed. The patient was evaluated in room B02. A complete history and physical examination was performed. 0956: Case management will speak to the family. 1112: Case management contacted hospice. They will follow-up with the patient at home later today to set up care. 1126: Upon reevaluation, the patient appeared to have improvement of his symptoms. I discussed findings with the family. They verbalized agreement of the treatment plan. The patient was discharged home. Medical Decision The patient is a 62 year old male who presents to the ED with complaints of worsening abdominal pain beginning a few weeks ago. Differentials include metastatic carcinoma, pleural effusion, compression fracture, pneumonia, dehydration, rib fracture This patient was evaluated and appeared to be in no significant distress. IV access was obtained and the patient was placed on the site monitor. Patient was medicated with 1 mg of IV Dilaudid and 12.5 mg of IV Phenergan. He was hydrated with normal saline solution. Patient had laboratory work performed within the last 2 weeks. He was able to rest for several hours in the emergency department. Case management was consulted and they were able to speak with the patient's hospice nurse. He apparently is on a 25 mcg fentanyl patch with as needed [place]. The issues that he is not able to swallow the [place]. The patient's fentanyl patch has been increased to 50 mcg and he was given a prescription for Roxicodone liquid. The patient will be discharged to the care of his family and hospice will meet them at the patient's home later today for an intake evaluation. Patient's family seems happy with this plan and agrees. They will return the patient to the emergency department for difficulties with pain management or if hospice falls through, or any medical concerns. Medication Reconcilliation Current Medication List: was personally reviewed by me Blood Pressure Screening Patient's blood pressure: Normal blood pressure Blood pressure disposition: Did not require urgent referral Impression Primary Impression: Cancer-related pain Additional Impression: Metastatic lung carcinoma Scribe Attestation The scribe's documentation has been prepared under my direction and personally reviewed by me in its entirety. I confirm that the note above accurately reflects all work, treatment, procedures, and medical decision making performed by me. Departure Information Dispostion Home / Self-Care Prescriptions Ondasetron Odt (ZOFRAN ODT) 4 Mg Tab 4 MG SL Q6H for Nausea, #30 TAB Prov: Mehnaz Gallo M.D. 05/18/18 Oxycodone Hcl (ROXYCODONE ORAL SOLN) 5 Mg/5 Ml [place] 5 ML PO Q4 Y for Pain, #100 ML Prov: Mehnaz Gallo M.D. 05/18/18 Fentanyl (Fentanyl) 50 Mcg Tdsy 1 PATCH TD q3days, #10 PATCH Prov: Mehnaz Gallo M.D. 05/18/18 Referrals Stanislaw Mcdonald D.O. (PCP) Forms HOME CARE DOCUMENTATION FORM, IMPORTANT VISIT INFORMATION, WORK / SCHOOL INSTRUCTIONS Patient Instructions [facility] Additional Instructions Diagnosis: Metastatic lung CA, cancer related pain Your fentanyl patch has been increased to 50 mcg every 3 days. You may use 2- 25 mcg patches or 1- 50 mcg patch. Roxanol 5 mL every 4 hours as needed for breakthrough pain. Zofran 4 mg ODT as needed for nausea. Colace 100 mg twice daily to avoid constipation on the narcotics. Please drink plenty of fluids and attempt to eat. Boost milkshakes can be helpful. Your hospice nurse should be in contact today. Return to the ED for worsening of symptoms or any medical concerns. Problem Qualifiers Additional Impression: Metastatic lung carcinoma Laterality: left Qualified Codes: C78.02 - Secondary malignant neoplasm of left lung
[2018-05-18] MEDS ORDERED: FNTTP25 TOP (09:26)
[2018-05-18] MEDS ORDERED: FENTANYL 50 MCG/HR TDSY TD STA (11:09)
[2018-05-18] MEDS ORDERED: DRGTP50 TD (11:12)
[2018-05-18] MEDS ORDERED: OXYC10SO PO (11:12)
[2018-05-18] MEDS ORDERED: FENTANYL PATCH REMOVE & WASTE SCH (11:15)
[2018-05-18] MEDS ORDERED: ONDA4TAB10 SL (11:15)
[2018-05-18 11:40] VITALS: PULSE 65; O2SAT 95
== END 2018-05-18 11:41 | disposition home or self-care (01) ==
LOC: C.EDB 08:22
DX: G89.3 Neoplasm related pain (acute) (chronic) (principal); C78.02 Secondary malignant neoplasm of left lung; C34.90 Malignant neoplasm of unspecified part of unspecified bronchus or lung; J43.9 Emphysema, unspecified; E11.9 Type 2 diabetes mellitus without complications; Z87.891 Personal history of nicotine dependence